=== PATIENT | male | born 1960 | race Caucasian/White ===

== ENCOUNTER 2018-07-27 09:40 | Inpatient (IN) | payer OTHER ==
[~2018-07-27] VITALS: Ht 182.9 cm; Wt 83.9 kg
[2018-07-27] VITALS (20 sets, daily range): BP systolic 98–128; BP diastolic 61–86
--- OUTSIDE RECORDS SUMMARY | 2018-07-27 09:46 | XMS REPORT | Continuity of Care Document ---
Author Author [facility] Address Unknown Phone Unavailable Allergies There is no data. Medications There is no data. Problems Date Dx Coded Attending Type Code Diagnosis Diagnosed By 08/09/2014 LSO DOSHI DO V74.1 TB SCREENING Procedures [place] [address] TB TEST INTRADERMAL 08/09/2014 Results There is no data. Encounters ACCT No. Visit Date/Time Discharge Status Pt. Type Provider Facility Loc./Unit Complaint [id number] 08/09/2014 16:00:00 08/09/2014 23:59:59 CLS Outpatient LOS DOSHI DO [id number] 02/19/2013 10:21:00 02/19/2013 23:59:59 CLS Outpatient
--- OUTSIDE RECORDS SUMMARY | 2018-07-27 09:46 | XMS REPORT ---
Author Author LOS DOSHI [facility] Address [address] [place] [address] Care Team Providers Care Hydrometeorology Teacher Name Role Phone LOS DOSHI Unavailable PROBLEMS Type Condition ICD9-CM Code [id number] Code Onset Dates Condition Status SNOMED Code Problem Screening examination for pulmonary tuberculosis V74.1 Active [id number] ALLERGIES No Information ENCOUNTERS Encounter Location Date Diagnosis [facility] [id number] [place] [phone] May, [facility] [id number] [address] Jul, [facility] [id number] [place] [phone] Jul, [facility] [id number] [address] Jul, IMMUNIZATIONS No Known Immunizations SOCIAL HISTORY Never Assessed REASON FOR VISIT Requesting return call. PLAN OF CARE VITAL SIGNS MEDICATIONS Unknown Medications RESULTS No Results PROCEDURES No Known procedures INSTRUCTIONS MEDICATIONS ADMINISTERED No Known Medications
--- OUTSIDE RECORDS SUMMARY | 2018-07-27 09:46 | XMS REPORT | Continuity of Care Document ---
Author Author [facility] Address Unknown Phone Unavailable Allergies There is no data. Medications There is no data. Problems Date Dx Coded Attending Type Code Diagnosis Diagnosed By 08/09/2014 LOS DOSHI DO V74.1 TB SCREENING Procedures Code [place] [address] TB TEST INTRADERMAL 08/09/2014 Results There is no data. Encounters ACCT No. Visit Date/Time Discharge Status Pt. Type Provider Facility Loc./Unit Complaint [id number] 08/09/2014 16:00:00 08/09/2014 23:59:59 CLS Outpatient LOS DOSHI DO [id number] 02/19/2013 10:21:00 02/19/2013 23:59:59 CLS Outpatient
[2018-07-27] MEDS ORDERED: NS IV 1000 ML 1,000 ML ONE ×2 (09:51→10:25)
--- NOTE | 2018-07-27 09:52 | Cardiac Procedure Note-CS/ASA ---
Pre-Procedure Note Pre-Op Procedure Note H&P Reviewed The H&P was reviewed, patient examined and no changes noted. Date H&P Reviewed: Jul 27, 2018 Time H&P Reviewed: 09:52 Conscious Sedation Pre-Proced Time 09:52 ASA Score 3 For ASA 3 and 4: Consider anesthesia and medical clearance. Also, for patients with a history of failed moderate sedation consider anesthesia. Airway Lungs Heart ASA score ASA 1: a normal healthy patient ASA 2: a patient with a mild systemic disease (mid diabetes, controlled hypertension, obesity x ASA 3: a patient with a severe systemic disease that limits activity (angina , COPD, prior Myocardial infarction) ASA 4: a patient with an incapacitating disease that is a constant threat to life (CHF, renal failure) ASA 5: a moribund patient not expected to survive 24 hrs. (ruptured aneurysm) ASA 6: a declared brain patient whose organs are being harvested. For emergent operations, add the letter E after the classification Mallampati Classification Grade 3 Sedation Plan Analgesia, Amnesia, Plan communicated to team members, Discussed options with patient/fam, Discussed risks with patient/fam The patient is an appropriate candidate to undergo the planned procedure, sedation, and anesthesia. The patient immediately re-assessed prior to indication. LUZMA DOMINGUEZ MD Jul 27, 2018 09:52
--- NOTE | 2018-07-27 09:52 | Cardiology History & Physical ---
HPI-Cardiology Cardiology Consultation Date of Consultation 07/27/18 Date of Admission Time Seen by Provider: 10:43 Indication: Chest pain HPI 58 years old gentleman with history of tobaccoism, was in his usual state of health until about 2 weeks ago when she suffered upper respiratory tract infection treated with steroid and antibiotic and felt better. Last night he started having chest pain described it as dull achiness in the retrosternal area radiating to left side of his chest. Went to the urgent care at [facility] this morning and was noted to have ST elevation in the inferior lead, was transferred by ambulance to our facility, upon my evaluation was feeling somewhat better. Still having mild chest discomfort. Denied any similar episode in the past. No shortness of breath, is an active smoker, no pedal edema or claudications PMH-Cardiology Other PMHx No significant past medical history Social History Patient Social History Marrital Status: Employed/Student: employed Smoking: Current every day smoker Recent Foreign Travel: No Contact w/other who traveled: No Family Hx Other Family history of heart disease ROS-Cardiology Review of Systems General: No Chills, No Night Sweats, No Fatigue, No Malaise, No Appetite HEENT: No Head Aches, No Visual Changes, No Eye Pain, No Ear Pain, No Dysphasia , No Sinus Congestion, No Post Nasal Drip, No Sore Throat Pulmonary: No Dyspnea, No Cough, No Pleuritic Chest Pain Cardiovascular: Chest Pain; No: Palpitations, Orthopnea, Paroxysmal Noc. Dyspnea, Edema, Lt Headedness Gastrointestinal: No: Nausea, Vomiting, Abdominal Pain, Diarrhea, Constipation , Melena, Hematochezia Genitourinary: No Dysuria, No Frequency, No Incontinence, No Hematuria, No Retention Musculoskeletal: No: neck pain, shoulder pain, arm pain, back pain, hand pain, leg pain, foot pain Neurological: No: Weakness, Numbness, Incoordination, Change in speech, Confusion, Seizures Home Medications & Allergies Allergies: Coded Allergies: No Known Drug Allergies (Unverified , 07/27/18) Home Medication List Reviewed: Yes Was not taking any medicine at home Exam-Cardiology Vital Signs Vital Signs Date Time Temp Pulse Resp B/P (MAP) Pulse Ox O2 Delivery O2 Flow Rate FiO2 07/27/18 09:47 66 18 118/72 (87) 97 07/27/18 09:42 Room Air Exam General Appearance: Alert, Oriented X3, Cooperative, No Acute Distress HEENT: Atraumatic, PERRLA Respiratory: Clear to Auscultation, Normal Air Movement Cardiovascular: Regular Rate, Normal S1, Normal S2, No Murmurs Abdominal: Normal Bowel Sounds, Soft, No Tenderness, No Hepatosplenomegaly, No Masses Extremities: No Clubbing, No Cyanosis, No Edema, Normal Pulses, No Tenderness/ Swelling Skin: No Rashes, No Breakdown, No Significant Lesion Neuro: Normal Gait, Normal Speech, Strength at 5/5 X4 Ext, Normal Tone, Sensation Intact Psych/Mental Status: Mental Status NL, Mood NL Results Labs Labs Laboratory Tests 07/27/18 09:45: White Blood Count 10.5, Red Blood Count 4.33L, Hemoglobin 14.0, Hematocrit 41, Mean Corpuscular Volume 94, Mean Corpuscular Hemoglobin 32, Mean Corpuscular Hemoglobin Concent 35, Red Cell Distribution Width 13.5, Platelet Count 168, Mean Platelet Volume 10.3, Neutrophils (%) (Auto) 79H, Lymphocytes (%) (Auto) 14 , Monocytes (%) (Auto) 7, Eosinophils (%) (Auto) 1, Basophils (%) (Auto) 0, Neutrophils # (Auto) 8.3H, Lymphocytes # (Auto) 1.5, Monocytes # (Auto) 0.7, Eosinophils # (Auto) 0.1, Basophils # (Auto) 0.0, Prothrombin Time 12.8, INR Comment 1.0, Activated Partial Thromboplast Time 26, Sodium Level 136, Potassium Level 4.1, Chloride Level 102, Carbon Dioxide Level 25, Anion Gap 9, Blood Urea Nitrogen 12, Creatinine 0.74, Estimat Glomerular Filtration Rate > 60 , BUN/Creatinine Ratio 16, Glucose Level 119H, Calcium Level 9.1, Corrected Calcium 9.2, Magnesium Level 2.0, Total Bilirubin 0.4, Aspartate Amino Transf ( AST/SGOT) 91H, Alanine Aminotransferase (ALT/SGPT) 34, Alkaline Phosphatase 69, Myoglobin 911.6H, Troponin I 4.40*H, Total Protein 6.6, Albumin 3.9 A/P-Cardiology Admission Diagnosis ST elevation [place] Coronary artery disease Hypertension Hyperlipidemia Admission Status: Inpatient Order (span 2 midnights) Reason for Inpatient Admission: Acute myocardial infarction Assessment/Plan ST elevation VA involving the inferior wall, patient started having chest pain over 12 hours from arrival to the hospital, had troponin elevation, proceeded with emergency cardiac catheterization which showed occlusion of the right coronary artery, attempt to recanalize the right coronary artery has failed, 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 Continue on medical therapy and monitor tolerance and response Hypertension, blood pressure is under good control at this time, I'll start him on low-dose beta blockers Questionable hyperlipidemia, starting on Lipitor 80 mg daily and monitor tolerance and response Tobaccoism, educated and instructed on smoking cessation LUZMA DOMINGUEZ MD Jul 27, 2018 09:52
[2018-07-27] MEDS ORDERED: fentaNYL INJECTION 100 MCG/2 ML AMP ONE (09:53)
[2018-07-27] MEDS ORDERED: HEParin 1000 UNIT/ML (10ML VIAL) FOR BOLUS ONE (09:53)
[2018-07-27] MEDS ORDERED: MIDAZOLAM 5 MG/5 ML (VERSED) VIAL ONE (09:53)
[2018-07-27 09:54] LABS: BASOPHILS % (AUTO) 0 % (0-10); EOSINOPHILS # (AUTO) 0.1 10^3/uL (0.0-0.3); EOSINOPHILS % (AUTO) 1 % (0-10); HEMATOCRIT 41 % (40-54); LYMPHOCYTES # (AUTO) 1.5 X 10^3 (1.0-4.0); LYMPHOCYTES % (AUTO) 14 % (12-44); MEAN CORPUSCULAR HEMOGLOBIN 32 PG (25-34); MEAN CORPUSCULAR HGB CONC 35 G/DL (32-36); MEAN CORPUSCULAR VOLUME 94 FL (80-99); MEAN PLATELET VOLUME 10.3 FL (7.4-10.4); MONOCYTES # (AUTO) 0.7 X 10^3 (0.0-1.0); MONOCYTES % (AUTO) 7 % (0-12); NEUTROPHILS # (AUTO) 8.3 X 10^3 (1.8-7.8); NEUTROPHILS % (AUTO) 79 % (42-75); PLATELET COUNT 168 10^3/uL (130-400); RED BLOOD COUNT 4.33 10^6/uL (4.35-5.85); RED CELL DISTRIBUTION WIDTH 13.5 % (10.0-14.5); WHITE BLOOD COUNT 10.5 10^3/uL (4.3-11.0)
[2018-07-27] MEDS ORDERED: EPTIFIBATIDE BOLUS 20 ML IV ONE (09:54)
--- NOTE | 2018-07-27 09:55 | ED Chest Pain ---
General Stated Complaint: STEMI Source: patient, EMS Exam Limitations: no limitations History of Present Illness Date Seen by Provider: Jul 27, 2018 Time Seen by Provider: 09:31 Initial Comments Patient presents to ER by EMS [place] [facility] [place] [facility] [place] because she's having substernal and midline chest pain started about 10:00 last night and has not gone away. He had some sweats overnight with it. He is a it might be GERD. He has no significant medical history and does not follow with a doctor. He is a smoker. The had a IV started is given 325 mg of aspirin about an EKG and stated he had an acute inferior CT at the urgent care. No nitroglycerin was given. He has a history of hernia surgery in his right inguinal and shoulder and right elbow surgery. EMS started about 200 cc of normal saline. He had no fever and good Blood pressure. Allergies and Home Medications Allergies Coded Allergies: No Known Drug Allergies (Unverified , 07/27/18) Patient Home Medication List Home Medication List Reviewed: Yes Review of Systems Review of Systems Constitutional: No chills, No fever EENTM: No Blurred Vision, No Double Vision Respiratory: Denies Cough, Denies Shortness of Air Cardiovascular: Chest Pain; Denies Edema Gastrointestinal: Denies Abdomen Distended, Denies Abdominal Pain Past Pphhqao-Sczwep-Ytjjpe Hx Patient Social History Recreational Drug Use: No Smoking Status: Current Everyday Smoker Recent Foreign Travel: No Contact w/Someone Who Travel: No Physical Exam Vital Signs Capillary Refill : Height, Weight, BMI Height: '" Weight: lbs. oz. kg; BMI Method: General Appearance: WD/WN, Mild Distress HEENT: PERRL/EOMI, Pharynx Normal, Moist Mucous Membranes Respiratory: Chest Non Tender, Lungs Clear, Normal Breath Sounds, No Accessory Muscle Use, No Respiratory Distress Cardiovascular: Regular Rate, Rhythm, No Edema Gastrointestinal: Non Tender, Soft Progress/Results/Core Measures Progress Progress Note : Time: 09:52 Progress Note [facility] was activated after the initial phone call from her [facility] urgent care. Dr. Mireles met the patient in the ER. He took a history we obtained labs and sent patient to [facility]. He is accompanied with an EKG pronounced from urgent care as well as the 12-lead from the truck which both indicated to 3 aVF and 1- 2 boxes of elevation. There are some reciprocal depression about 1 box in anterior leads 2 and 3. Initial ECG Impression Date: Jul 27, 2018 Initial ECG Impression Time: 09:02 Initial ECG Rate: 65 Initial ECG Rhythm: Normal Sinus Initial ECG Intervals: Normal Initial ECG Impression: Acute CT Initial ECG Comparisson: No Previous ECG Available Comment 1-2 mm elevation in leads 2, 3, aVF. Reciprocal depression 1 mm in leads V2 and V3. Departure Communication (Admissions) Time/Spoke to Admitting Phy: 09:34 Dr. Mireles met the patient in the ER and taken to [facility]. Agrees to admit the patient. Impression Primary Impression: Inferior myocardial infarction Disposition: ADMITTED INPATIENT Condition: Critical Admissions Decision to Admit Reason: Admit from ER (General) Decision to Admit/Date: Jul 27, 2018 Time/Decision to Admit Time: 09:55 Departure-Patient Inst. Referrals: LEONARD ARANGO MD (PCP) Primary Care Physician [place] Jul 27, 2018 09:55
[2018-07-27] MEDS ORDERED: niCARdipine 25 MG/10 ML (CARDENE) AMP IV ONE (10:03)
[2018-07-27] MEDS ORDERED: ATROPINE INJECTION 1 MG/10 ML SYR (ABBOTT) ONE (10:03)
[2018-07-27 10:06] LABS: PROTHROMBIN TIME PATIENT 12.8 SEC (12.2-14.7)
[2018-07-27 10:11] LABS: ALANINE AMINOTRANSFERASE 34 U/L (0-55); ALBUMIN 3.9 GM/DL (3.2-4.5); ALKALINE PHOSPHATASE 69 U/L (40-136); BILIRUBIN,TOTAL 0.4 MG/DL (0.1-1.0); BUN/CREATININE RATIO 16; CALCIUM 9.1 MG/DL (8.5-10.1); CARBON DIOXIDE 25 MMOL/L (21-32); CHLORIDE 102 MMOL/L (98-107); CREATININE SERUM 0.74 MG/DL (0.60-1.30); GFR ESTIMATED > 60; GLUCOSE 119 MG/DL (70-105); POTASSIUM 4.1 MMOL/L (3.6-5.0); SODIUM 136 MMOL/L (135-145); TOTAL PROTEIN 6.6 GM/DL (6.4-8.2)
[2018-07-27] MEDS ORDERED: NS (IVPB) 250 ML ONE (10:12)
[2018-07-27 10:18] LABS: MYOGLOBIN SERUM 911.6 NG/ML (10.0-92.0)
[2018-07-27] MEDS ORDERED: PATIENT MAY USE OWN MEDS, ALL PO SCH (11:15)
--- NOTE | 2018-07-27 11:21 | Cardiac Cath Report ---
Cardiac Cath Report Physician (s)/Virtual Office Assistant (s) Physician LUZMA DOMINGUEZ MD Pre-Procedure Diagnosis Pre-Procedure Diagnosis: Acute myocardial infarction Post-Procedure Note Procedure Start Date: Jul 27, 2018 Name of Procedure: Left heart catheterization Balloon angioplasty to the right coronary artery Findings/Procedure Note PROCEDURE NOTE: After explaining the procedure to the patient, all pros and cons were explained , all questions were answered. The patient signed the consent and then he was placed on the cardiac catheterization laboratory. Groin was prepped SL fashion local anesthesia was used. Sheath placed in the right femoral artery. Margie right and left catheter were used to access the coronary system. Pigtail was used to access the left ventricular cavity. Patient was noted to have total occlusion of the distal right coronary artery, tortuous artery with questionable spontaneous dissection distally, I proceeded with percutaneous intervention given 5000 units of heparin and double bolus Integrilin. I used if our guide and advanced BMW wire, I was unable to advance the wire tried a balloon support without success, used a whisper wire and was successful in crossing the lesion distally. It appear to be propagating the dissection after balloon angioplasty using 2.5x15 mm balloon, there was no improvement in the flow door to balloon time was 30 minutes, I pulled the wire back and redirected it and attempted again without success, used Choice PT wire and also kept favoring the dissection flap without establishing flow into the true lumen. I called Dr. Keller for support tried again with multiple wires without success in advancing the wire in the true lumen. At that point we decided that we will abort the procedure and continue with medical therapy. I advanced a pigtail catheter to the left ventricular cavity and left ventriculogram was done then placed the Margie left catheter again in the left corner system and injected the left corner system that showed that there are collaterals filling the distal right system. At the end of the procedure the sheath was removed. Closure device was used FINDINGS: Hemodynamics LV 121/17, end-diastolic pressure of 17 Aorta 135/79 mean of 103 ANATOMY: Left Main is bifurcating into LAD and circumflex artery with no disease Left Anterior Descending has mild to moderate ostial LAD stenosis, nonobstructive disease Left Circumflex has mild disease nonobstructive disease Right Coronory Artery is dominant artery tortuous artery and occluded distally with spontaneous dissection, I was able to advance a wire to the distal artery and balloon angioplasty done, door to balloon time was 30 minutes, was unable to establish good flow in the distal right coronary artery appeared to be propagating the dissection in that artery. LV Gram was done showing inferior wall hypokinesia estimated ejection fraction 50 percent CONCLUSION: 1. 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 2. Normal left ventricular size with inferior wall hypokinesia, estimated ejection fraction 50 percent DISCUSSION AND RECOMMENDATION: I will continue to maximize medical therapy Anesthesia Type: Conscious Sedation Estimated blood loss (mL): 50 ml Contrast Amount: 150 ml Total Radiation Dose: 3399 mGy Post-Procedure Diagnosis Post-operative diagnosis: Acute ST elevation [place] Coronary artery disease Hypertension Hyperlipidemia LUZMA DOMINGUEZ MD Jul 27, 2018 11:21
[2018-07-27] MEDS ORDERED: CLOPIDOGREL 300 MG (PLAVIX) TABLET PO ONE (11:23)
[2018-07-27] MEDS: NS IV 1000 ML 1,000 ML IV SCH ×2 (12:32→17:08)
--- NOTE | 2018-07-27 16:48 | Diagnostic Imaging Report ---
EXAM: Frontal chest obtained at 4:39 hours p.m. FINDINGS: Heart and mediastinal silhouette are normal in appearance, There is no pneumothorax, pleural fluid or focal infiltrate. IMPRESSION: No acute process in the chest and no change from 12/20/2007. Dictated by: Dictated on workstation # [id number]
[2018-07-27] MEDS: ATORVASTATIN 80 MG (LIPITOR) TABLET PO SCH (21:27)
[2018-07-27] MEDS: meTOprolol TARTRATE 25 MG (LOPRESSOR) TABLET PO SCH (21:28)
[2018-07-28] VITALS (10 sets, daily range): BP systolic 93–118; BP diastolic 64–74
[2018-07-28] MEDS: NS IV 1000 ML 1,000 ML IV SCH ×2 (03:11→18:35)
[2018-07-28 03:59] LABS: HEMOGLOBIN 12.8 G/DL (13.3-17.7); MEAN PLATELET VOLUME 10.8 FL (7.4-10.4); RED CELL DISTRIBUTION WIDTH 13.2 % (10.0-14.5); WHITE BLOOD COUNT 11.9 10^3/uL (4.3-11.0)
[2018-07-28 04:11] LABS: BUN/CREATININE RATIO 11; CALCIUM 8.8 MG/DL (8.5-10.1); CARBON DIOXIDE 22 MMOL/L (21-32); CHLORIDE 103 MMOL/L (98-107); CHOLESTEROL 266 MG/DL (< 200); CREATININE SERUM 0.63 MG/DL (0.60-1.30); GFR ESTIMATED > 60; GLUCOSE 126 MG/DL (70-105); HDL CHOLESTEROL 41 MG/DL (40-60); POTASSIUM 4.1 MMOL/L (3.6-5.0); SODIUM 134 MMOL/L (135-145); TRIGLYCERIDES 178 MG/DL (<150); VLDL CHOLESTEROL 36 MG/DL (5-40)
[2018-07-28 05:18] LABS: MAGNESIUM 1.7 MG/DL (1.8-2.4); PHOSPHORUS 2.6 MG/DL (2.3-4.7)
[2018-07-28] MEDS: MAGNESIUM 1 GM/100 ML IVPB 100 ML IV SCH ×2 (06:54→08:27)
[2018-07-28] MEDS: ASPIRIN E.C. 81 MG (ECOTRIN) TAB PO SCH (08:27)
[2018-07-28] MEDS: meTOprolol TARTRATE 25 MG (LOPRESSOR) TABLET PO SCH ×2 (08:28→20:35)
[2018-07-28] MEDS: CLOPIDOGREL 75 MG (PLAVIX) TABLET PO SCH (08:28)
--- NOTE | 2018-07-28 10:31 | Diagnostic Imaging Report ---
INDICATION: Chest pain. COMPARISON: 07/27/2018. FINDINGS: Visualized lungs are clear. No pleural effusion or pneumothorax. Posterior lower lobes are poorly evaluated by portable radiography. Heart is normal in size. Normal pulmonary vasculature. IMPRESSION: Stable-negative portable chest. Dictated by: Dictated on workstation # [id number]
[2018-07-28] MEDS ORDERED: ONDANSETRON 4 MG/2 ML (SDV) Z0FRAN IVP NR (11:00)
[2018-07-28] MEDS ORDERED: ANTACID SUSP 30 ML UDC (MYLANTA) PO NR (11:00)
--- NOTE | 2018-07-28 11:49 | Cardiology Progress Note ---
Subjective Date Seen by Provider: Jul 28, 2018 Time Seen by Provider: 08:20 Subjective/Events-last exam Patient was seen at bedside, sitting upright, feeling good, denied any chest pain, no palpitation. Review of Systems General: No Chills, No Night Sweats, No Fatigue, No Malaise, No Appetite, No Other HEENT: No Head Aches, No Visual Changes, No Eye Pain, No Ear Pain, No Dysphasia , No Sinus Congestion, No Post Nasal Drip, No Sore Throat, No Other Pulmonary: No Dyspnea, No Cough, No Pleuritic Chest Pain, No Other Cardiovascular: No: Chest Pain, Palpitations, Orthopnea, Paroxysmal Noc. Dyspnea, Edema, Lt Headedness, Other Objective-Cardiology Exam Last Set of Vital Signs Vital Signs 07/28/18 07/28/18 07/28/18 07/28/18 06:00 07:00 08:34 11:21 Temp 98.6 Pulse 73 Resp 14 B/P (MAP) 114/74 (87) Pulse Ox 98 O2 Delivery Room Air Capillary Refill : Less Than 3 Seconds I&O Intake and Output 07/28/18 00:00 Intake Total 1740 ml Output Total 1075 ml Balance 665 ml Intake Oral 540 ml IV Total 1200 ml Output Urine Total 1075 ml # Voids 1 Daily Weight Change No General: Alert, Oriented X3, Cooperative, No Acute Distress HEENT: Atraumatic, PERRLA Neck: Supple, No JVD Lungs: Clear to Auscultation, Normal Air Movement Heart: Regular Rate, Normal S1, Normal S2, No Murmurs Abdomen: Normal Bowel Sounds, Soft, No Tenderness, No Hepatosplenomegaly, No Masses Extremities: No Clubbing, No Cyanosis, No Edema, Normal Pulses, No Tenderness/ Swelling Skin: No Rashes, No Breakdown, No Significant Lesion Neuro: Normal Gait, Normal Speech, Strength at 5/5 X4 Ext, Normal Tone, Sensation Intact Psych/Mental Status: Mental Status NL, Mood NL Results Lab Laboratory Tests 07/28/18 03:36 Laboratory Tests Test 07/28/18 03:36 Range/Units White Blood Count 11.9 H 4.3-11.0 10^3/uL Red Blood Count 4.00 L 4.35-5.85 10^6/uL Hemoglobin 12.8 L 13.3-17.7 G/DL Hematocrit 38 L 40-54 % Mean Corpuscular Volume 95 80-99 FL Mean Corpuscular Hemoglobin 32 25-34 PG Mean Corpuscular Hemoglobin Concent 34 32-36 G/DL Red Cell Distribution Width 13.2 10.0-14.5 % Platelet Count 129 L 130-400 10^3/uL Mean Platelet Volume 10.8 H 7.4-10.4 FL Sodium Level 134 L 135-145 MMOL/L Potassium Level 4.1 3.6-5.0 MMOL/L Chloride Level 103 98-107 MMOL/L Carbon Dioxide Level 22 21-32 MMOL/L Anion Gap 9 5-14 MMOL/L Blood Urea Nitrogen 7 7-18 MG/DL Creatinine 0.63 0.60-1.30 MG/DL Estimat Glomerular Filtration Rate > 60 BUN/Creatinine Ratio 11 Glucose Level 126 H 70-105 MG/DL Calcium Level 8.8 8.5-10.1 MG/DL Phosphorus Level 2.6 2.3-4.7 MG/DL Magnesium Level 1.7 L 1.8-2.4 MG/DL Troponin I 33.29 *H <0.30 NG/ML Triglycerides Level 178 H <150 MG/DL Cholesterol Level 266 H < 200 MG/DL LDL Cholesterol Direct 203 H 1-129 MG/DL VLDL Cholesterol 36 5-40 MG/DL HDL Cholesterol 41 40-60 MG/DL Thyroid Stimulating Hormone (TSH) 0.29 L 0.35-4.94 UIU/ML A/P-Cardiology Admission Diagnosis ST elevation [place] Coronary artery disease Hypertension Hyperlipidemia Assessment/Plan ST elevation [place] involving the inferior wall, 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 Door to balloon time was 30 minutes. Troponin is up to 33, continue to monitor. Continue on aspirin and Plavix. Hypertension, tolerating Toprol well. Continue to monitor Hyperlipidemia, started on Lipitor 80 mg, add Fish oil and monitor Nausea, loss of appetite. Given Zofran. Continue to monitor Tobaccoism, educated and instructed on smoking cessation Clinical Quality Measures DVT/VTE Risk/Contraindication: Risk Factor Score Per Nursin RFS Level Per Nursing on Admit: 4+=Very High LUZMA DOMINGUEZ MD Jul 28, 2018 11:49
[2018-07-28] MEDS: OMEGA 3 (FISH OIL) 1000 MG CAP PO SCH (16:52)
[2018-07-28] MEDS ORDERED: NITROGLYCERIN 0.4 MG SL TABS BTL 25'S SL NR (18:45)
[2018-07-28] MEDS ORDERED: fentaNYL INJECTION 100 MCG/2 ML AMP ONE (20:08)
[2018-07-28] MEDS: ATORVASTATIN 80 MG (LIPITOR) TABLET PO SCH (20:35)
[2018-07-28] MEDS ORDERED: oxyCODONE/APAP 5/325MG (PERCOCET 5) TABLET ONE (21:53)
[2018-07-28] MEDS ORDERED: NITROGLYCERIN 2% OINT 1 GM UNIT DOSE PACKET ONE (22:26)
[2018-07-28] MEDS ORDERED: FUROSEMIDE 40 MG/4 ML INJ (LASIX) ONE (22:26)
[2018-07-28] MEDS ORDERED: morphine INJ 4 MG/ML 1 ML (VIAL/SYRINGE) ONE (22:26)
[2018-07-29] VITALS (8 sets, daily range): BP systolic 91–116; BP diastolic 58–79
[2018-07-29] MEDS ORDERED: oxyCODONE/APAP 5/325MG (PERCOCET 5) TABLET PO ONE (00:45)
[2018-07-29] MEDS ORDERED: FUROSEMIDE 40 MG/4 ML INJ (LASIX) IVP ONE (00:45)
[2018-07-29] MEDS ORDERED: morphine INJ 4 MG/ML 1 ML (VIAL/SYRINGE) IVP ONE (00:45)
[2018-07-29] MEDS ORDERED: NITROGLYCERIN 2% OINT 1 GM UNIT DOSE PACKET TOP ONE (00:45)
[2018-07-29] MEDS ORDERED: fentaNYL INJECTION 100 MCG/2 ML AMP IVP ONE (00:45)
[2018-07-29] MEDS: NS IV 1000 ML 1,000 ML IV SCH ×2 (02:57→16:35)
[2018-07-29 04:11] LABS: HEMOGLOBIN 12.8 G/DL (13.3-17.7); MEAN PLATELET VOLUME 10.9 FL (7.4-10.4); RED BLOOD COUNT 3.86 10^6/uL (4.35-5.85); RED CELL DISTRIBUTION WIDTH 13.5 % (10.0-14.5); WHITE BLOOD COUNT 13.9 10^3/uL (4.3-11.0)
[2018-07-29 04:50] LABS: ALANINE AMINOTRANSFERASE 53 U/L (0-55); ALBUMIN 3.8 GM/DL (3.2-4.5); ALKALINE PHOSPHATASE 72 U/L (40-136); BILIRUBIN,TOTAL 0.7 MG/DL (0.1-1.0); BUN/CREATININE RATIO 11; CALCIUM 9.5 MG/DL (8.5-10.1); CARBON DIOXIDE 22 MMOL/L (21-32); CHLORIDE 101 MMOL/L (98-107); GFR ESTIMATED > 60; GLUCOSE 124 MG/DL (70-105); SODIUM 135 MMOL/L (135-145); TOTAL PROTEIN 6.9 GM/DL (6.4-8.2)
--- NOTE | 2018-07-29 07:09 | Cardiology Progress Note ---
Subjective Date Seen by Provider: Jul 29, 2018 Time Seen by Provider: 07:07 Subjective/Events-last exam Patient had a nausea and vomiting yesterday and then started having epigastric and lower chest pain, was improving during the day but started getting worse at night, reported as lockstitch hemmer pain, pain with coughing and movement. Became more intense at night. Responded to nitroglycerin and morphine. Initially the sublingual nitroglycerin did not help much but the Nitropatch brought some relief of his chest pain Review of Systems General: No Chills, No Night Sweats, No Fatigue, No Malaise, No Appetite, No Other HEENT: No Head Aches, No Visual Changes, No Eye Pain, No Ear Pain, No Dysphasia , No Sinus Congestion, No Post Nasal Drip, No Sore Throat, No Other Pulmonary: No Dyspnea; Cough; No Pleuritic Chest Pain, No Other Cardiovascular: Chest Pain; No: Palpitations, Orthopnea, Paroxysmal Noc. Dyspnea, Edema, Lt Headedness, Other Objective-Cardiology Exam Last Set of Vital Signs Vital Signs 07/28/18 07/28/18 07/29/18 19:49 21:00 04:00 Pulse 96 Resp 18 B/P (MAP) 112/70 (84) Pulse Ox 94 O2 Delivery Room Air O2 Flow Rate 2.00 Capillary Refill : Less Than 3 Seconds I&O Intake and Output 07/29/18 00:00 Intake Total 2660 ml Output Total 1700 ml Balance 960 ml Intake Oral 960 ml IV Total 1700 ml Output Urine Total 1700 ml # Voids 5 # Emeses 1 General: Alert, Oriented X3, Cooperative, No Acute Distress HEENT: Atraumatic, PERRLA Neck: Supple, No JVD Lungs: Clear to Auscultation, Normal Air Movement Heart: Regular Rate, Normal S1, Normal S2, No Murmurs Abdomen: Normal Bowel Sounds, Soft, No Tenderness, No Hepatosplenomegaly, No Masses Extremities: No Clubbing, No Cyanosis, No Edema, Normal Pulses, No Tenderness/ Swelling Skin: No Rashes, No Breakdown, No Significant Lesion Neuro: Normal Gait, Normal Speech, Strength at 5/5 X4 Ext, Normal Tone, Sensation Intact Psych/Mental Status: Mental Status NL, Mood NL Results Lab Laboratory Tests 07/29/18 04:05 A/P-Cardiology Admission Diagnosis ST elevation [place] Coronary artery disease Hypertension Hyperlipidemia Assessment/Plan ST elevation [place] involving the inferior wall, 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 Door to balloon time was 30 minutes. Troponin is trending down at this time. Continue on aspirin and Plavix and monitor. Chest pain, better today. Continue to monitor, I will start him on Imdur instead of Nitropatch and evaluate his tolerance and response Mild shortness of breath and cough, I will give additional dose of Lasix and monitor his response Hypertension, tolerating Toprol well. Continue to monitor Hyperlipidemia, started on Lipitor 80 mg, add Fish oil and monitor Nausea, loss of appetite, better at this time. Continue to monitor Tobaccoism, educated and instructed on smoking cessation Clinical Quality Measures DVT/VTE Risk/Contraindication: Risk Factor Score Per Nursin RFS Level Per Nursing on Admit: 4+=Very High LUZMA DOMINGUEZ MD Jul 29, 2018 07:09
[2018-07-29] MEDS ORDERED: FUROSEMIDE 40 MG/4 ML INJ (LASIX) IVP NR (07:30)
[2018-07-29] MEDS: ISOSORBIDE MONONITRATE 30 MG (IMDUR) TAB PO SCH (09:14)
[2018-07-29] MEDS: meTOprolol TARTRATE 25 MG (LOPRESSOR) TABLET PO SCH ×2 (09:14→20:46)
[2018-07-29] MEDS: CLOPIDOGREL 75 MG (PLAVIX) TABLET PO SCH (09:14)
[2018-07-29] MEDS: ASPIRIN E.C. 81 MG (ECOTRIN) TAB PO SCH (09:14)
[2018-07-29] MEDS: OMEGA 3 (FISH OIL) 1000 MG CAP PO SCH ×2 (09:14→18:01)
[2018-07-29] MEDS ORDERED: PANTOPRAZOLE 40 MG (PROTONIX) TAB PO NR (09:30)
[2018-07-29] MEDS: ATORVASTATIN 80 MG (LIPITOR) TABLET PO SCH (20:46)
[2018-07-30] VITALS: BP 99/63
[2018-07-30 04:00] VITALS: BP 106/64
[2018-07-30 05:04] LABS: HEMOGLOBIN 11.3 G/DL (13.3-17.7); MEAN PLATELET VOLUME 11.2 FL (7.4-10.4); RED BLOOD COUNT 3.5 10^6/uL (4.35-5.85); RED CELL DISTRIBUTION WIDTH 13.1 % (10.0-14.5); WHITE BLOOD COUNT 9.5 10^3/uL (4.3-11.0)
[2018-07-30 05:21] LABS: BUN/CREATININE RATIO 16; CALCIUM 9.4 MG/DL (8.5-10.1); CARBON DIOXIDE 27 MMOL/L (21-32); CHLORIDE 99 MMOL/L (98-107); CREATININE SERUM 0.74 MG/DL (0.60-1.30); GFR ESTIMATED > 60; GLUCOSE 109 MG/DL (70-105); SODIUM 135 MMOL/L (135-145)
[2018-07-30] MEDS ORDERED: PANTOPRAZOLE 40 MG (PROTONIX) TAB PO SCH (07:00)
[2018-07-30] MEDS: OMEGA 3 (FISH OIL) 1000 MG CAP PO SCH (07:04)
[2018-07-30] MEDS ORDERED: ATOR80TA76 PO (07:28)
[2018-07-30] MEDS ORDERED: ASPI-983 PO (07:28)
[2018-07-30] MEDS ORDERED: METO-351 PO (07:28)
[2018-07-30] MEDS ORDERED: CLOP75TA28 PO (07:28)
[2018-07-30] MEDS ORDERED: PANT40TA3 PO (07:28)
[2018-07-30] MEDS ORDERED: OMG1KC PO (07:28)
[2018-07-30] MEDS ORDERED: ISOS30TA3 PO (07:28)
[2018-07-30] MEDS ORDERED: FURO-125 PO (07:29)
--- NOTE | 2018-07-30 07:31 | Discharge Inst-Post CATH ---
Discharge Inst-CATH Post Cardiac Cath D/C Inst Follow Up/Plan May return to work on August 10, [address] Mireles's office in 2 weeks CARDIAC CATH DISCHARGE INSTRUCTIONS *Hold Metformin for 48 hours post heart cath. ACTIVITY * Go Home directly and rest. * Limit activity of the leg (or wrist if it was used) for 7 days including aerobics, swimming, jogging, bicycling, etc. * Restrict stair-climbing for 7 days if possible, if not, climb up with your non -cath leg, then bring together on the same step. * Avoid lifting, pushing, pulling or excessive movement of the affected extremity for 7 days. * Customary sexual activity may be resumed after 2 days-use caution not to use a position that strains or causes pain to the affected extremity. * No driving for 24 hours. * NO SMOKING. * Avoid straining for bowel movements for 7 days. * Gentle walking on level ground is allowed. * Returning to work will depend on the type of procedure and the results. Your doctor will discuss this with you. CALL YOUR DOCTOR FOR ANY OF THE FOLLOWING: *If bleeding from the puncture site occurs- Apply gentle pressure to site with clean cloth and call your doctor or EMS. * If a knot or lump forms under the skin, increases in size, or causes pain. * If bruising appears to be worsening or moving further down your leg instead of disappearing. * Temperature above 101 F. CARE OF YOUR GROIN INCISION; * Bruising or purple discoloration of the skin near the puncture site is common. * You may shower only, no bathtub bathing for 5 days. Be careful to avoid slipping as your leg may feel stiff. * If a closure device was used on your femoral artery, please see the attached guide regarding care of the device and your leg. * Leave the dressing on, until removed by office staff. CARE OF YOUR WRIST INCISION; * Bruising or purple discoloration of the skin near the puncture site is common. * You may shower. * DO NOT submerge wrist. * Leave dressing on, until removed by office staff.. LUZMA MIRELES MD Jul 30, 2018 07:31
--- NOTE | 2018-07-30 07:38 | Cardiology Discharge Summary ---
Diagnosis/Chief Complaint Date of Admission July 27, 2018 Date of Discharge July 30, [address] elevation ND Coronary artery disease Hypertension Hyperlipidemia Discharge Diagnosis ST elevation myocardial infarction Coronary artery disease Hypertension Hyperlipidemia Chief Complaint/HPI Chief Complaint/HPI 58 years old gentleman with history of tobaccoism, was in his usual state of health until about 2 weeks ago when she suffered upper respiratory tract infection treated with steroid and antibiotic and felt better. Last night he started having chest pain described it as dull achiness in the retrosternal area radiating to left side of his chest. Went to the urgent care at [facility] this morning and was noted to have ST elevation in the inferior lead, was transferred by ambulance to our facility, upon my evaluation was feeling somewhat better. Still having mild chest discomfort. Denied any similar episode in the past. 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 Patient was monitored in the hospital and today he is feeling better. 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 Door to balloon time was 30 minutes. Patient is feeling better. Denied any chest pain at this time, ambulating well. I will discharge home, would continue on aspirin and Plavix, continue on isosorbide and monitor as an outpatient Chest pain, better today, planning for discharge and follow-up as an outpatient Mild shortness of breath and cough, improved after receiving a dose of Lasix, will discharge her on Lasix to be used as needed for shortness of breath and cough Hypertension, tolerating Toprol well. Continue to monitor Hyperlipidemia, started on Lipitor 80 mg, add Fish oil and monitor Nausea, loss of appetite, better at this time. Continue to monitor Tobaccoism, educated and instructed on smoking cessation Patient was ambulating yesterday, continue to exercise yesterday while he was on cardiac stepdown and felt better, did not have any chest pain with exercise. Labs Laboratory Tests 07/27/18 09:45: Red Blood Count 4.33L, Neutrophils (%) (Auto) 79H, Neutrophils # (Auto) 8.3H, Glucose Level 119H, Aspartate Amino Transf (AST/SGOT) 91H, Myoglobin 911.6H, Troponin I 4.40*H 07/28/18 03:36: Red Blood Count 4.00L, Glucose Level 126H, Troponin I 33.29*H, White Blood Count 11.9H, Hemoglobin 12.8L, Hematocrit 38L, Platelet Count 129L, Mean Platelet Volume 10.8H, Sodium Level 134L, Magnesium Level 1.7L, Triglycerides Level 178H, Cholesterol Level 266H, LDL Cholesterol Direct 203H, Thyroid Stimulating Hormone (TSH) 0.29L 07/29/18 04:05: Red Blood Count 3.86L, Glucose Level 124H, Aspartate Amino Transf (AST/SGOT) 172H, Troponin I 25.71*H, White Blood Count 13.9H, Hemoglobin 12.8L, Hematocrit 37L, Platelet Count 123L, Mean Platelet Volume 10.9H 07/30/18 05:00: Red Blood Count 3.50L, Glucose Level 109H, Troponin I 24.58*H, Hemoglobin 11.3L , Hematocrit 33L, Platelet Count 120L, Mean Platelet Volume 11.2H Procedures None. Discharge Physical Examination Allergies: Coded Allergies: No Known Drug Allergies (Unverified , 07/27/18) Vitals & I&Os Vital Signs Date Time Temp Pulse Resp B/P (MAP) Pulse Ox O2 Delivery O2 Flow Rate FiO2 07/30/18 04:00 99.3 95 16 106/64 (78) 94 Room Air 07/28/18 21:00 2.00 General Appearance: Alert, Oriented X3, Cooperative, No Acute Distress HEENT: Atraumatic, PERRLA Respiratory: Clear to Auscultation, Normal Air Movement Cardiovascular: Regular Rate, Normal S1, Normal S2, No Murmurs Abdominal: Normal Bowel Sounds, Soft, No Tenderness, No Hepatosplenomegaly, No Masses Extremities: No Clubbing, No Cyanosis, No Edema, Normal Pulses, No Tenderness/ Swelling Skin: No Rashes, No Breakdown, No Significant Lesion Neuro: Normal Gait, Normal Speech, Strength at 5/5 X4 Ext, Normal Tone, Sensation Intact, Cranial Nerves 3-12 NL, Reflexes 2+ Psych/Mental Status: Mental Status NL, Mood NL Discharge Home Medications Reviewed and agree with Discharge Medication list on patient's Discharge Instruction sheet Instructions to Patient/Family Please see electronic discharge instructions given to patient. Clinical Quality Measures Admission Status Admission Status: Inpatient Order (span 2 midnights) Reason for Inpatient Admission: Acute myocardial infarction AMI/AHF: Ejection Fraction: Normal LVSF DVT/VTE Risk/Contraindication: Risk Factor Score Per Nursin RFS Level Per Nursing on Admit: 4+=Very High LUZMA DOMINGUEZ MD Jul 30, 2018 07:38
[2018-07-30 08:00] VITALS: BP 110/65
[2018-07-30] MEDS: ASPIRIN E.C. 81 MG (ECOTRIN) TAB PO SCH (08:19)
[2018-07-30] MEDS: CLOPIDOGREL 75 MG (PLAVIX) TABLET PO SCH (08:19)
[2018-07-30] MEDS: meTOprolol TARTRATE 25 MG (LOPRESSOR) TABLET PO SCH (08:20)
[2018-07-30] MEDS: ISOSORBIDE MONONITRATE 30 MG (IMDUR) TAB PO SCH (08:20)
--- OUTSIDE RECORDS SUMMARY | 2018-07-30 14:12 | XMS REPORT | Continuity of Care Document ---
Author Author [facility] [place] [facility] Address Unknown Phone Unavailable Allergies Active Description Code Type Severity Reaction Onset Reported/Identified Relationship to Patient Clinical Status Yes No Known Drug Allergies [id number] Drug Allergy Unknown N/A 07/27/2018 Medications There is no data. Problems Date Dx Coded Attending Type Code Diagnosis Diagnosed By 08/09/2014 LOS DOSHI DO V74.1 TB SCREENING 07/27/2018 CALVIN VILLAR, YESSY Ot 719.41 [employer] Procedures Code [place] [address] TB TEST INTRADERMAL 08/09/2014 Results Test Result Range Complete blood count (CBC) with automated white blood cell (WBC) differential - 07/27/18 09:45 Blood leukocytes automated count (number/volume) 10.5 10*3/uL 4.3-11.0 Blood erythrocytes automated count (number/volume) 4.33 10*6/uL 4.35-5.85 Venous blood hemoglobin measurement (mass/volume) 14.0 g/dL 13.3-17.7 Blood hematocrit (volume fraction) 41 % 40-54 Automated erythrocyte mean corpuscular volume 94 [foz_us] 80-99 Automated erythrocyte mean corpuscular hemoglobin (mass per erythrocyte) 32 pg 25-34 Automated erythrocyte mean corpuscular hemoglobin concentration measurement ( mass/volume) 35 g/dL 32-36 Automated erythrocyte distribution width ratio 13.5 % 10.0-14.5 Automated blood platelet count (count/volume) 168 10*3/uL 130-400 Automated blood platelet mean volume measurement 10.3 [foz_us] 7.4-10.4 Automated blood neutrophils/100 leukocytes 79 % 42-75 Automated blood lymphocytes/100 leukocytes 14 % 12-44 Blood monocytes/100 leukocytes 7 % 0-12 Automated blood eosinophils/100 leukocytes 1 % 0-10 Automated blood basophils/100 leukocytes 0 % 0-10 Blood neutrophils automated count (number/volume) 8.3 10*3 1.8-7.8 Blood lymphocytes automated count (number/volume) 1.5 10*3 1.0-4.0 Blood monocytes automated count (number/volume) 0.7 10*3 0.0-1.0 Automated eosinophil count 0.1 10*3/uL 0.0-0.3 Automated blood basophil count (count/volume) 0.0 10*3/uL 0.0-0.1 PT panel in platelet poor plasma by coagulation assay - 07/27/18 09:45 Prothrombin time (PT) in platelet poor plasma by coagulation assay 12.8 s 12.2-14.7 INR in platelet poor plasma or blood by coagulation assay 1.0 0.8-1.4 Activated partial thromboplastin time (aPTT) in platelet poor plasma bycoagulation assay - 07/27/18 09:45 Activated partial thromboplastin time (aPTT) in platelet poor plasma bycoagulation assay 26 s 24-35 Comprehensive metabolic panel - 07/27/18 09:45 Serum or plasma sodium measurement (moles/volume) 136 mmol/L 135-145 Serum or plasma potassium measurement (moles/volume) 4.1 mmol/L 3.6-5.0 Serum or plasma chloride measurement (moles/volume) 102 mmol/L 98-107 Carbon dioxide 25 mmol/L 21-32 Serum or plasma anion gap determination (moles/volume) 9 mmol/L 5-14 Serum or plasma urea nitrogen measurement (mass/volume) 12 mg/dL 7-18 Serum or plasma creatinine measurement (mass/volume) 0.74 mg/dL 0.60-1.30 Serum or plasma urea nitrogen/creatinine mass ratio 16 NRG Serum or plasma creatinine measurement with calculation of estimated glomerular filtration rate > NRG Serum or plasma glucose measurement (mass/volume) 119 mg/dL 70-105 Serum or plasma calcium measurement (mass/volume) 9.1 mg/dL 8.5-10.1 Serum or plasma total bilirubin measurement (mass/volume) 0.4 mg/dL 0.1-1.0 Serum or plasma alkaline phosphatase measurement (enzymatic activity/volume) 69 U/L 40-136 Serum or plasma aspartate aminotransferase measurement (enzymatic activity/ volume) 91 U/L 5-34 Serum or plasma alanine aminotransferase measurement (enzymatic activity/volume ) 34 U/L 0-55 Serum or plasma protein measurement (mass/volume) 6.6 g/dL 6.4-8.2 Serum or plasma albumin measurement (mass/volume) 3.9 g/dL 3.2-4.5 CALCIUM CORRECTED 9.2 mg/dL 8.5-10.1 Magnesium - 07/27/18 09:45 Magnesium 2.0 mg/dL 1.8-2.4 Serum or plasma troponin i.cardiac measurement (mass/volume) - 07/27/18 09:45 Serum or plasma troponin i.cardiac measurement (mass/volume) 4.40 ng /mL <0.30 Myoglobin, serum - 07/27/18 09:45 Myoglobin, serum 911.6 ng/mL 10.0-92.0 Automated blood complete blood count (hemogram) panel - 07/28/18 03:36 Blood leukocytes automated count (number/volume) 11.9 10*3/uL 4.3-11.0 Blood erythrocytes automated count (number/volume) 4.00 10*6/uL 4.35-5.85 Venous blood hemoglobin measurement (mass/volume) 12.8 g/dL 13.3-17.7 Blood hematocrit (volume fraction) 38 % 40-54 Automated erythrocyte mean corpuscular volume 95 [foz_us] 80-99 Automated erythrocyte mean corpuscular hemoglobin (mass per erythrocyte) 32 pg 25-34 Automated erythrocyte mean corpuscular hemoglobin concentration measurement ( mass/volume) 34 g/dL 32-36 Automated erythrocyte distribution width ratio 13.2 % 10.0-14.5 Automated blood platelet count (count/volume) 129 10*3/uL 130-400 Automated blood platelet mean volume measurement 10.8 [foz_us] 7.4-10.4 Whole blood basic metabolic panel - 07/28/18 03:36 Serum or plasma sodium measurement (moles/volume) 134 mmol/L 135-145 Serum or plasma potassium measurement (moles/volume) 4.1 mmol/L 3.6-5.0 Serum or plasma chloride measurement (moles/volume) 103 mmol/L 98-107 Carbon dioxide 22 mmol/L 21-32 Serum or plasma anion gap determination (moles/volume) 9 mmol/L 5-14 Serum or plasma urea nitrogen measurement (mass/volume) 7 mg/dL 7-18 Serum or plasma creatinine measurement (mass/volume) 0.63 mg/dL 0.60-1.30 Serum or plasma urea nitrogen/creatinine mass ratio 11 NRG Serum or plasma creatinine measurement with calculation of estimated glomerular filtration rate > NRG Serum or plasma glucose measurement (mass/volume) 126 mg/dL 70-105 Serum or plasma calcium measurement (mass/volume) 8.8 mg/dL 8.5-10.1 Serum or plasma troponin i.cardiac measurement (mass/volume) - 07/28/18 03:36 Serum or plasma troponin i.cardiac measurement (mass/volume) 33.29 ng/mL <0.30 Lipid 1996 panel - 07/28/18 03:36 Serum or plasma triglyceride measurement (mass/volume) 178 mg/dL <150 Serum or plasma cholesterol measurement (mass/volume) 266 mg/dL < 200 Serum or plasma cholesterol in HDL measurement (mass/volume) 41 mg/ dL 40-60 Cholesterol in LDL [mass/volume] in serum or plasma by direct assay 203 mg/dL 1-129 Serum or plasma cholesterol in VLDL measurement (mass/volume) 36 mg/ dL 5-40 THYROID STIMULATING HORMONE - 07/28/18 03:36 THYROID STIMULATING HORMONE 0.29 u[iU]/mL 0.35-4.94 Serum or plasma phosphate measurement (mass/volume) - 07/28/18 03:36 Serum or plasma phosphate measurement (mass/volume) 2.6 mg/dL 2.3-4.7 Magnesium - 07/28/18 03:36 Magnesium 1.7 mg/dL 1.8-2.4 Automated blood complete blood count (hemogram) panel - 07/29/18 04:05 Blood leukocytes automated count (number/volume) 13.9 10*3/uL 4.3-11.0 Blood erythrocytes automated count (number/volume) 3.86 10*6/uL 4.35-5.85 Venous blood hemoglobin measurement (mass/volume) 12.8 g/dL 13.3-17.7 Blood hematocrit (volume fraction) 37 % 40-54 Automated erythrocyte mean corpuscular volume 97 [foz_us] 80-99 Automated erythrocyte mean corpuscular hemoglobin (mass per erythrocyte) 33 pg 25-34 Automated erythrocyte mean corpuscular hemoglobin concentration measurement ( mass/volume) 34 g/dL 32-36 Automated erythrocyte distribution width ratio 13.5 % 10.0-14.5 Automated blood platelet count (count/volume) 123 10*3/uL 130-400 Automated blood platelet mean volume measurement 10.9 [foz_us] 7.4-10.4 Comprehensive metabolic panel - 07/29/18 04:05 Serum or plasma sodium measurement (moles/volume) 135 mmol/L 135-145 Serum or plasma potassium measurement (moles/volume) 4.0 mmol/L 3.6-5.0 Serum or plasma chloride measurement (moles/volume) 101 mmol/L 98-107 Carbon dioxide 22 mmol/L 21-32 Serum or plasma anion gap determination (moles/volume) 12 mmol/L 5-14 Serum or plasma urea nitrogen measurement (mass/volume) 8 mg/dL 7-18 Serum or plasma creatinine measurement (mass/volume) 0.70 mg/dL 0.60-1.30 Serum or plasma urea nitrogen/creatinine mass ratio 11 NRG Serum or plasma creatinine measurement with calculation of estimated glomerular filtration rate > NRG Serum or plasma glucose measurement (mass/volume) 124 mg/dL 70-105 Serum or plasma calcium measurement (mass/volume) 9.5 mg/dL 8.5-10.1 Serum or plasma total bilirubin measurement (mass/volume) 0.7 mg/dL 0.1-1.0 Serum or plasma alkaline phosphatase measurement (enzymatic activity/volume) 72 U/L 40-136 Serum or plasma aspartate aminotransferase measurement (enzymatic activity/ volume) 172 U/L 5-34 Serum or plasma alanine aminotransferase measurement (enzymatic activity/volume ) 53 U/L 0-55 Serum or plasma protein measurement (mass/volume) 6.9 g/dL 6.4-8.2 Serum or plasma albumin measurement (mass/volume) 3.8 g/dL 3.2-4.5 CALCIUM CORRECTED 9.7 mg/dL 8.5-10.1 Serum or plasma troponin i.cardiac measurement (mass/volume) - 07/29/18 04:05 Serum or plasma troponin i.cardiac measurement (mass/volume) 25.71 ng/mL <0.30 Encounters ACCT No. Visit Date/Time Discharge Status Pt. Type Provider Facility Loc./Unit Complaint [id number] 08/09/2014 16:00:00 08/09/2014 23:59:59 [facility] Outpatient LOS DOSHI DO [id number] 07/27/2018 09:43:00 07/27/2018 23:59:59 CLS Outpatient ALBERTO VILLAR, LUZMA Whitaker [facility] ICU STEMI [id number] 02/19/2013 10:21:00 02/19/2013 23:59:59 CLS Outpatient CALVIN VILLAR, YESSY [facility] RAD LEFT SHOULDER ROTATOR CUFF IMPINGEMENT
== END 2018-07-30 08:45 | disposition home or self-care (01) | DRG 251 ==
LOC: EDUNIT# 09:40 → ER 09:41 → ICU 09:43 → CATH 09:43 → ICU 11:30 → CATH 11:30 → UNDOFXSDCSVC 07-28 08:38 → ICU 07-28 08:38 → CATH 07-30 08:45 → ICU 07-30 08:45
PROVIDERS: ADMIT Internal Medicine Cardiovascular Disease; ATTEND Internal Medicine Cardiovascular Disease
PROC: 02703ZZ Dilation of Coronary Artery, One Artery, Percutaneous Approach (ICD-10-PCS; principal; 2018-07-27)
PROC: 4A023N7 Measurement of Cardiac Sampling and Pressure, Left Heart, Percutaneous Approach (ICD-10-PCS; 2018-07-27)
PROC: B2151ZZ Fluoroscopy of Left Heart using Low Osmolar Contrast (ICD-10-PCS; 2018-07-27)
PROC: B2111ZZ Fluoroscopy of Multiple Coronary Arteries using Low Osmolar Contrast (ICD-10-PCS; 2018-07-27)
DX: I21.19 ST elevation (STEMI) myocardial infarction involving other coronary artery of inferior wall (principal); I25.10 Atherosclerotic heart disease of native coronary artery without angina pectoris; I10 Essential (primary) hypertension; E78.5 Hyperlipidemia, unspecified; R11.0 Nausea; F17.200 Nicotine dependence, unspecified, uncomplicated; I34.0 Nonrheumatic mitral (valve) insufficiency
CPT/HCPCS: 36415; 71045; 80048; 80053; 83735; 83874; 84484; 85025; 85027; 85610; 85730; 93005; 93041; 93306; 93458

== ENCOUNTER → 2019-06-30 | Outpatient (CLI) | payer OTHER ==
[~2019-06-30] VITALS: Ht 180 cm; Wt 85.0 kg
[~2019-06-30] MED LIST: ASPI-983 PO; ATOR80TA76 PO; CATHETER FLUSH 10 ML SYR IV PRN; CLOP75TA28 PO; FURO-125 PO; ISOS30TA3 PO; METO-351 PO; OMG1KC PO; PANT40TA3 PO
--- NOTE | 2019-06-30 17:59 | STRESS TEST ---
DATE OF SERVICE: 06/30/2019 EXERCISE MYOVIEW STRESS TEST REPORT REFERRING PHYSICIAN: No local physician. Baseline heart rate is 88. Baseline blood pressure 108/91. Baseline EKG is sinus rhythm with no ischemic changes. In summary, the patient was injected with 9.84 mCi of technetium-99 Myoview and the resting images were obtained. Then, the patient started exercising with a baseline heart rate, blood pressure and EKG mentioned above. The patient was able to exercise for a total of 7 minutes on standard Juan protocol. With peak exercise level, blood pressure was 199/82. EKG was showing minimal nondiagnostic changes. The patient was injected with a stress dose of 28.6 mCi of technetium-99 Myoview. During recovery, heart rate and blood pressure returned to baseline. EKG returned to baseline. The resting and stress images were reviewed and compared in the short axis, horizontal long axis, and vertical long axis views. Review of the images showed diaphragmatic attenuation with decreased uptake involving the whole inferior wall, inferoseptum and inferolateral wall with mild reversibility. SSS is 18, SDS 10, TID value 0.9. On the gated images, the left ventricle appeared to be normal size with hypokinesia at the inferior wall. Calculated ejection fraction 48%. IN CONCLUSION: 1. Fair exercise tolerance for a total of 7 minutes on standard Juan protocol, a total of 8.5 METS achieving 86% of maximum expected heart rate. 2. Nondiagnostic EKG changes with exercise returned to baseline during recovery. 3. Diaphragmatic attenuation with reversible ischemia involving the whole inferior wall, inferoseptum and inferolateral wall. 4. Normal left ventricular size with hypokinesia at the inferior wall. Calculated ejection fraction 48%. Job ID: [id number] DocumentID: [id number] Dictated Date: 06/30/2019 17:46:58 Principal Product Manager Date: 06/30/2019 17:59:09 Dictated By: LUZMA DOMINGUEZ MD
== END ==
LOC: CARD 11:45
PROVIDERS: ATTEND Internal Medicine Cardiovascular Disease
DX: I25.10 Atherosclerotic heart disease of native coronary artery without angina pectoris (principal); I34.0 Nonrheumatic mitral (valve) insufficiency; E78.2 Mixed hyperlipidemia; I51.89 Other ill-defined heart diseases
CPT/HCPCS: 78452; 93017

== ENCOUNTER 2020-12-23 09:50 | Emergency (ER) | payer BC, OTHER ==
[~2020-12-23] VITALS: Ht 182.8 cm; Wt 81.6 kg
[~2020-12-23 09:50] MED LIST changes: +ASPI-1238 PO; -ASPI-983 PO; -CATHETER FLUSH 10 ML SYR IV PRN; -ISOS30TA3 PO; +ISOS30TA82 PO; -PANT40TA3 PO; +PANT40TA52 PO
[2020-12-23] MEDS ORDERED: NS IV 1000 ML 1,000 ML IV ONE (10:00)
[2020-12-23 10:04] LABS: BASOPHILS % (AUTO) 0 % (0-10); EOSINOPHILS % (AUTO) 0 % (0-10); HEMATOCRIT 44 % (40-54); LYMPHOCYTES # (AUTO) 1.1 10^3/uL (1.0-4.0); LYMPHOCYTES % (AUTO) 9 % (12-44); MEAN CORPUSCULAR HEMOGLOBIN 33 pg (25-34); MEAN CORPUSCULAR HGB CONC 34 g/dL (32-36); MEAN CORPUSCULAR VOLUME 95 fL (80-99); MEAN PLATELET VOLUME 10.9 fL (9.0-12.2); MONOCYTES # (AUTO) 0.4 10^3/uL (0.0-1.0); MONOCYTES % (AUTO) 4 % (0-12); NEUTROPHILS # (AUTO) 10.5 10^3/uL (1.8-7.8); NEUTROPHILS % (AUTO) 86 % (42-75); PLATELET COUNT 144 10^3/uL (130-400); WHITE BLOOD COUNT 12.1 10^3/uL (4.3-11.0)
[2020-12-23] MEDS ORDERED: NS (IVPB) 250 ML ONE (10:14)
[2020-12-23] MEDS ORDERED: niCARdipine IV FOR DRIP 50 MG KIT ONE (10:14)
[2020-12-23 10:18] LABS: ALBUMIN 4.3 GM/DL (3.2-4.5); CHLORIDE 104 MMOL/L (98-107); POTASSIUM 3.8 MMOL/L (3.6-5.0); SODIUM 137 MMOL/L (135-145)
--- NOTE | 2020-12-23 10:18 | Diagnostic Imaging Report ---
INDICATION: Stroke. Comparison made with prior examination from 07/28/2018. FINDINGS: The heart size, mediastinal configuration, and pulmonary vascularity are within normal limits. There is no pleural effusion, pneumothorax, or pneumonia. The osseous structures are unremarkable. IMPRESSION: No acute cardiopulmonary abnormality. Dictated by: Dictated on workstation # [id number]
--- NOTE | 2020-12-23 10:18 | Diagnostic Imaging Report ---
PROCEDURE: CT head wo r/o stroke. TECHNIQUE: Multiple contiguous axial images were obtained through the brain without the use of intravenous contrast. Auto Exposure Controls were utilized during the CT exam to meet ALARA standards for radiation dose reduction. INDICATION: Suspected stroke. Neurologic deficit. COMPARISON: None. FINDINGS: Large intraparenchymal hemorrhage throughout the left temporal and occipital lobes. This measures approximately 3.7 x 9.4 x 4.0 cm (LR x AP x SI). Left to right midline shift measures 0.9 cm. There is some blood products within the compressed left lateral ventricle extending into the 3rd ventricle. No hydrocephalus. Osseous structures are intact. Paranasal sinuses and mastoids are unremarkable. Diffuse low-attenuation changes throughout the deep white matter. IMPRESSION: Large intraparenchymal hemorrhage throughout the left temporal and occipital lobes measuring up to 9.4 cm. Small amount of blood products within the left lateral and 3rd ventricles. Left to right midline shift measures up to 0.9 cm. Pertinent findings discussed with Dr. Ridge Morfin at 10:10 AM on 12/23/2020. Dictated by: Dictated on workstation # [id number]
[2020-12-23 10:19] LABS: LYMPHOCYTES % (MANUAL) 10 %; MONOCYTES % (MANUAL) 5 %; NEUTROPHILS % (MANUAL) 85 %
[2020-12-23 10:20] LABS: ANISOCYTOSIS SLIGHT; CALCIUM 8.9 MG/DL (8.5-10.1); HYPOCHROMASIA SLIGHT
[2020-12-23 10:21] LABS: GLUCOSE 133 MG/DL (70-105); TOTAL PROTEIN 7.2 GM/DL (6.4-8.2)
[2020-12-23 10:22] LABS: CARBON DIOXIDE 19 MMOL/L (21-32)
[2020-12-23 10:23] LABS: BILIRUBIN,TOTAL 0.5 MG/DL (0.1-1.0)
[2020-12-23 10:24] LABS: ALKALINE PHOSPHATASE 95 U/L (40-136); CREATININE SERUM 0.76 MG/DL (0.60-1.30); GFR ESTIMATED > 60
[2020-12-23 10:25] LABS: FIBRIN DEGRADATION PRODUCTS 0.7 UG/ML (0.00-0.49); PROTHROMBIN TIME PATIENT 13.4 SEC (12.2-14.7)
[2020-12-23 10:26] LABS: BUN/CREATININE RATIO 13
[2020-12-23 10:27] LABS: ALANINE AMINOTRANSFERASE 38 U/L (0-55)
[2020-12-23 10:48] LABS: BILIRUBIN,URINE NEGATIVE (NEGATIVE); CLARITY,URINE CLEAR; COLOR,URINE YELLOW; GLUCOSE, URINE (UA) NEGATIVE (NEGATIVE); KETONES,URINE NEGATIVE (NEGATIVE); LEUKOCYTE ESTERASE ,URINE NEGATIVE (NEGATIVE); NITRITE,URINE NEGATIVE (NEGATIVE); PH,URINE 7.5 (5-9); PROTEIN,URINE NEGATIVE (NEGATIVE)
[2020-12-23 11:01] LABS: AMORPHOUS SEDIMENT,UR FEW AMOR PHOSPHATE /LPF; BACTERIA,URINE NEGATIVE /HPF; SQUAMOUS EPITHELIAL CELL,UR RARE /HPF
[2020-12-23] MEDS ORDERED: ONDANSETRON 4 MG/2 ML (SDV) Z0FRAN ONE (11:07)
--- NOTE | 2020-12-23 11:08 | ED Syncope ---
General Chief Complaint: Neuro-Stroke Like Symptoms Stated Complaint: HEADACHE,CONFUSION Nursing Triage Note: PT BROUGHT IN BY [facility] FROM HOME WITH COMPLAINT OF HEADACHE AND CONFUSION. PER , AFTER PT WAS THROUGH WITH INTERCOURSE, HE BEGAN COMPLAINING OF HEADACHE AND ACTING CONFUSED. STATES SYMTPOMS STARTED 0600 AND WORSENED AROUND 0830. Source of Information: Patient Exam Limitations: No Limitations History of Present Illness Date Seen by Provider: Dec 23, 2020 Time Seen by Provider: 09:49 Initial Comments Here with report of acute onset of severe headache with confusion after coital relations with his this morning at about 6 AM. She reports that he continued with a headache and confusion and at about 830, the called the patient's sister who then came to check on him. At around 9 15-9 20, they de cided that he needed to be seen and called EMS. He arrived shortly before my evaluation. Patient does have confusion but is moving all 4 extremities. Does seem to be uncomfortable with relation to pain but denies nausea or vomiting currently. Patient is obviously confused but follows simple commands. History limited due to patient's underlying medical condition. After 's arrival, she does report that yesterday he worked outside for quite a while and was a little bit confused last night but he had been drinking beer and that seemed to have resolved. He was acting normally prior to coital relations this morning and does appear that the headache and confusion symptoms were acutely activated at the time of coital completion. Timing/Prior Episodes: No Prior History Symptoms Prior to Episode: Confusion, Lightheadedness Loss of Consciousness: No Loss of Consciousness Current Symptoms: Headache, Other (Confusion) Allergies and Home Medications Allergies Coded Allergies: No Known Drug Allergies (Unverified , 07/27/18) Home Medications Aspirin 81 Mg Tablet.dr, 81 MG PO DAILY Prescribed by: LUZMA DOMINGUEZ on 07/30/18727 Atorvastatin Calcium 80 Mg Tablet, 80 MG PO HS Prescribed by: LUZMA DOMINGUEZ on 07/30/18727 Clopidogrel Bisulfate 75 Mg Tablet, 75 MG PO DAILY Prescribed by: LUZMA DOMINGUEZ on 07/30/18727 Furosemide 20 Mg Tablet, 20 MG PO DAILY PRN for SHORTNESS OF BREATH Prescribed by: LUZMA DOMINGUEZ on 07/30/18 0729 Isosorbide Mononitrate 30 Mg Tab.er.24h, 30 MG PO DAILY Prescribed by: LUZMA DOMINGUEZ on 07/30/18727 Metoprolol Succinate 25 Mg Tab.er.24h, 25 MG PO DAILY Prescribed by: LUZMA DOMINGUEZ on 07/30/18727 Rydal 3 Polyunsat Fatty Acids 1,000 Mg Cap, 1,000 MG PO BID WITH MEALS Prescribed by: LUZMA DOMINGUEZ on 07/30/18727 Pantoprazole Sodium 40 Mg Tablet.dr, 40 MG PO DAILY@0700 Prescribed by: LUZMA DOMINUGEZ on 07/30/18727 Patient Home Medication List Home Medication List Reviewed: Yes Review of Systems Constitutional: see HPI; No chills, No fever Respiratory: No cough, No short of breath Cardiovascular: No chest pain, No edema Gastrointestinal: No nausea, No vomiting Review of systems limited due to underlying medical condition and confusion. All Other Systems Reviewed Negative Unless Noted: Yes Past Uysdepq-Zwxhpx-Tdrjbt Hx Past Med/Social Hx: Reviewed Nursing Past Med/Soc Hx Patient Social History Alcohol Use: Occasionally Uses Smoking Status: Current Everyday Smoker Recent Infectious Disease Expo: No Immunizations Up To Date Tetanus Booster (TDap): Unknown PED Vaccines UTD: Yes Date of Influenza Vaccine: Jun 15, 2018 Seasonal Allergies Seasonal Allergies: No Past Medical History Surgeries: Yes Respiratory: No Cardiac: Yes (murmur as a child ) Neurological: No Genitourinary: No Gastrointestinal: Yes Gastroesophageal Reflux Musculoskeletal: No Endocrine: No HEENT: No Cancer: No Psychosocial: No Integumentary: No Blood Disorders: No Family Medical History Reviewed Nursing Family Hx Patient reports no known family medical history. Physical Exam Vital Signs Vital Signs - First Documented 12/23/20 09:54 Pulse 82 Resp 16 B/P (MAP) 145/89 (107) Pulse Ox 99 O2 Delivery Room Air Capillary Refill : Less Than 3 Seconds Height, Weight, BMI Height: 6'0.00" Weight: 185lbs. 0.3oz. 83.017974ly; 24.00 BMI Method:Estimated General Appearance: No Apparent Distress, WD/WN HEENT: PERRL/EOMI, Pharynx Normal Neck: Non Tender, Supple Cardiovascular: Regular Rate, Rhythm, No Murmur Respiratory: Lungs Clear, Normal Breath Sounds Gastrointestinal: Non Tender, Soft Back: No CVA Tenderness, No Vertebral Tenderness Extremities: Normal Range of Motion, Non Tender, No Calf Tenderness Neurologic/Psychiatric: Alert, Oriented x3 Cranial Nerves: PERRL, Other (Answers basic questions slowly but does not appear to have slurred speech. No obvious facial droop) Coordination/Gait: Other (Moves all 4 extremities without difficulty and does not seem to have weakness in any of the 4 extremities although evaluation difficult due to underlying confusion) Skin: Normal Color, Warm/Dry Progress/Results/Core Measures Results/Orders Lab Results Laboratory Tests Test 12/23/20 09:54 12/23/20 09:56 12/23/20 10:41 Range/Units White Blood Count 12.1 H 4.3-11.0 10^3/uL Red Blood Count 4.61 4.30-5.52 10^6/uL Hemoglobin 15.0 13.3-17.7 g/dL Hematocrit 44 40-54 % Mean Corpuscular Volume 95 80-99 fL Mean Corpuscular Hemoglobin 33 25-34 pg Mean Corpuscular Hemoglobin Concent 34 32-36 g/dL Red Cell Distribution Width 13.9 10.0-14.5 % Platelet Count 144 130-400 10^3/uL Mean Platelet Volume 10.9 9.0-12.2 fL Immature Granulocyte % (Auto) 0 % Neutrophils (%) (Auto) 86 H 42-75 % Lymphocytes (%) (Auto) 9 L 12-44 % Monocytes (%) (Auto) 4 0-12 % Eosinophils (%) (Auto) 0 0-10 % Basophils (%) (Auto) 0 0-10 % Neutrophils # (Auto) 10.5 H 1.8-7.8 10^3/uL Lymphocytes # (Auto) 1.1 1.0-4.0 10^3/uL Monocytes # (Auto) 0.4 0.0-1.0 10^3/uL Eosinophils # (Auto) 0.0 0.0-0.3 10^3/uL Basophils # (Auto) 0.0 0.0-0.1 10^3/uL Immature Granulocyte # (Auto) 0.0 0.0-0.1 10^3/uL Neutrophils % (Manual) 85 % Lymphocytes % (Manual) 10 % Monocytes % (Manual) 5 % Hypochromasia SLIGHT Anisocytosis SLIGHT Blood Morphology Comment NA Prothrombin Time 13.4 12.2-14.7 SEC INR Comment 1.0 0.8-1.4 Activated Partial Thromboplast Time 25 24-35 SEC D-Dimer 0.70 H 0.00-0.49 UG/ML Sodium Level 137 135-145 MMOL/L Potassium Level 3.8 3.6-5.0 MMOL/L Chloride Level 104 98-107 MMOL/L Carbon Dioxide Level 19 L 21-32 MMOL/L Anion Gap 14 5-14 MMOL/L Blood Urea Nitrogen 10 7-18 MG/DL Creatinine 0.76 0.60-1.30 MG/DL Estimat Glomerular Filtration Rate > 60 BUN/Creatinine Ratio 13 Glucose Level 133 H 70-105 MG/DL Calcium Level 8.9 8.5-10.1 MG/DL Corrected Calcium 8.7 8.5-10.1 MG/DL Total Bilirubin 0.5 0.1-1.0 MG/DL Aspartate Amino Transf (AST/SGOT) 32 5-34 U/L Alanine Aminotransferase (ALT/SGPT) 38 0-55 U/L Alkaline Phosphatase 95 40-136 U/L Troponin I < 0.028 <0.028 NG/ML Total Protein 7.2 6.4-8.2 GM/DL Albumin 4.3 3.2-4.5 GM/DL Glucometer 132 H 70-110 MG/DL Urine Color YELLOW Urine Clarity CLEAR Urine pH 7.5 5-9 Urine Specific [place] 1.015 L 1.016-1.022 Urine Protein NEGATIVE NEGATIVE Urine Glucose (UA) NEGATIVE NEGATIVE Urine Ketones NEGATIVE NEGATIVE Urine Nitrite NEGATIVE NEGATIVE Urine Bilirubin NEGATIVE NEGATIVE Urine Urobilinogen 0.2 < = 1.0 MG/DL Urine Leukocyte Esterase NEGATIVE NEGATIVE Urine RBC (Auto) NEGATIVE NEGATIVE Urine RBC NONE /HPF Urine WBC NONE /HPF Urine Squamous Epithelial Cells RARE /HPF Urine Crystals PRESENT H /LPF Urine Amorphous Sediment FEW [place] PHOSPHATE H /LPF Urine Bacteria NEGATIVE /HPF Urine Casts NONE /LPF Urine Mucus NEGATIVE /LPF Urine Culture Indicated NO My Orders Orders - RIDGE GAINES MD Cbc With Automated Diff (12/23/20 09:58) Protime With Inr (12/23/20 09:58) Partial Thromboplastin Time (12/23/20 09:58) Comprehensive Metabolic Panel (12/23/20 09:58) Fibrin Degradation Products (12/23/20 09:58) Troponin I (12/23/20 09:58) Ua Culture If Indicated (12/23/20 09:58) Chest 1 View, Ap/Pa Only (12/23/20 09:58) Ekg Tracing (12/23/20:58) Nothing By Mouth (12/23/20 Lunch) Accucheck Stat ONCE (12/23/20 09:58) Ed Iv/Invasive Line Start (12/23/20 09:58) Ed Iv/Invasive Line Start (12/23/20 09:58) Vital Signs Stroke Patient Q15M (12/23/20 09:58) Ct Head Wo-R/O Stroke (12/23/20 09:58) O2 (12/23/20 09:58) Intake & Output 06,14,22 (12/23/20:58) Monitor-Rhythm Ecg Trace Only (12/23/20:58) Dysphagia Screening Tool (12/23/20:58) Post Thrombolytic Adminstratio (12/23/20 09:58) Lipid Panel (12/24/20 06:00) Ns Iv 1000 Ml (Sodium Chloride 0.9%) (12/23/20 10:00) Manual Differential (12/23/20 09:54) Nicardipine Iv For Drip (Cardene I.V. (O (12/23/20 10:14) Ns (Ivpb) (Sodium Chloride 0.9%) (12/23/20 10:14) Ns (Ivpb) (Sodium C... W/Nicardipine Iv (12/23/20 11:15) Fentanyl Inj (Sublimaze Injection) (12/23/20 11:10) Ondansetron Injection (Zofran Injectio (12/23/20 11:07) Vital Signs/I&O 12/23/20 09:54 Pulse 82 Resp 16 B/P (MAP) 145/89 (107) Pulse Ox 99 O2 Delivery Room Air Blood Pressure Mean: 107 FSBG Bedside Testing Finger Stick Blood Glucose: 132 Progress Progress Note : Progress Note Seen and evaluated on arrival by EMS. Stroke activation initiated and patient rapidly to CT. 1025: Patient noted to have left intraparenchymal bleed and discussed with radiology. Not obvious aneurysmal component although does appear to be acute bleed from this morning by history. I have have attempted contact with [facility] in [place], [place]. They have no critical care beds. 1140: I have contacted [facility] in [facility]. Patient exceeds level of care there due to concerns about possible AV malformation and/or spontaneous aneurysmal rupture as discussed with Dr. Birch, neurosurgeon on-call there. He is recommending transfer to higher level center and [facility] in [facility] is capable for this. We have initiated transfer proceedings there. 1055: I have discussed the case with the neurosurgeon on-call at [facility] and [place], [place], Dr. Holland and he accepts patient but would like the patient to go from ER to ER. 1105: I have discussed the case with Dr. Cullen, ER physician information technology technician. Case reviewed. He accepts patient for olivia hansen. We are currently trying to arrange flight versus ground ambulance due to distance and severity of illness although weather may be an issue. 1130: We are unable to initiate flight transport due to weather and ground transport has been initiated. Patient is on Cardene drip to keep blood pressure less than 140 systolic. Patient has had nausea and vomiting now. Zofran 4 mg IV and fentanyl 50 mcg IV given. I have updated the family on all aspects of care, findings and decision for transfer and they are in full agreement. Monitor patient. Initial ECG Impression Date: Dec 23, 2020 Initial ECG Impression Time: 09:55 Initial ECG Rate: 81 Initial ECG Rhythm: Normal Sinus Initial ECG Intervals: Normal Initial ECG Impression: Normal Comment Sinus rhythm with left atrial abnormality. Inferior infarct age undetermined. Normal axis. No evidence of ST elevation [place]. Similar to 07/28/2018. Interpreted by me. Diagnostic Imaging Diagonstic Imaging: CT Plain Films/CT/US/NM/MRI: head Comments [facility] [place] [place] NAME: KARYN NGO [facility] REC#: [id number] PT STATUS: REG ER : 1960 PHYSICIAN: RIDGE GAINES MD ADMIT DATE: 12/23/20/ER Draft Date of Exam:12/23/20 CT HEAD WO-R/O STROKE PROCEDURE: CT head wo r/o stroke. TECHNIQUE: Multiple contiguous axial images were obtained through the brain without the use of intravenous contrast. Auto Exposure Controls were utilized during the CT exam to meet ALARA standards for radiation dose reduction. INDICATION: Suspected stroke. Neurologic deficit. COMPARISON: None. FINDINGS: Large intraparenchymal hemorrhage throughout the left temporal and occipital lobes. This measures approximately 3.7 x 9.4 x 4.0 cm (LR x AP x SI). Left to right midline shift measures 0.9 cm. There is some blood products within the compressed left lateral ventricle extending into the 3rd ventricle. No hydrocephalus. Osseous structures are intact. Paranasal sinuses and mastoids are unremarkable. Diffuse low-attenuation changes throughout the deep white matter. IMPRESSION: Large intraparenchymal hemorrhage throughout the left temporal and occipital lobes measuring up to 9.4 cm. Small amount of blood products within the left lateral and 3rd ventricles. Left to right midline shift measures up to 0.9 cm. Pertinent findings discussed with Dr. Ridge Gaines at 10:10 AM on 12/23/2020. Dictated on workstation # [id number] Dict: 12/23/20 1007 Trans: 12/23/20 1018 KATHIE [id number] Interpreted by: GUTIERREZ SINCLAIR MD Electronically signed by: [place] Imaging: Xray Plain Films/CT/US/NM/MRI: chest Comments [facility] [place] [place] NAME: KARYN NGO [facility] REC#: [id number] PT STATUS: REG ER : 1960 PHYSICIAN: RIDGE GAINES MD ADMIT DATE: 12/23/20/ER Signed Date of Exam:12/23/20 CHEST 1 VIEW, AP/PA ONLY INDICATION: Stroke. Comparison made with prior examination from 07/28/2018. FINDINGS: The heart size, mediastinal configuration, and pulmonary vascularity are within normal limits. There is no pleural effusion, pneumothorax, or pneumonia. The osseous structures are unremarkable. IMPRESSION: No acute cardiopulmonary abnormality. Dictated by: Dictated on workstation # [id number] Dict: 12/23/20 1016 Trans: 12/23/20 1021 KATHIE [id number] Interpreted by: ANG JACKSON MD Electronically signed by: ANG JACKSON MD 12/23/20 1021 Critical Care Note Critical Care Start Time: 09:49 Stop Time: 11:37 Total Time (minutes) 45 Departure Impression Primary Impression: Intraparenchymal hemorrhage of brain Disposition: XFER SHT-TRM HOSP Condition: Critical Transfer Transfer Reason: Exceeds level of care Time Spoke to Accepting Phy: 10:55 Transfer Facility: [place], [place], Dr. Cullen accepting Method of Transfer: EMS Departure-Patient Inst. Referrals: NO,LOCAL PHYSICIAN (PCP/Family) Primary Care Physician Copy Copies To 1: LUZMA DOMINGUEZ MD, TIMOTHY D MD Dec 23, 2020 11:08
[2020-12-23] MEDS ORDERED: fentaNYL INJ 100 MCG/2 ML AMP IVP STA (11:10)
[2020-12-23] MEDS ORDERED: niCARdipine IV 50 MG in NS (IVPB) 230 ML IV SCH (11:15)
[2020-12-23 12:01] VITALS: BP 152/77
== END 2020-12-23 12:01 | disposition short-term general hospital (02) ==
LOC: EDUNIT# 09:50 → ER 09:52
DX: I61.9 Nontraumatic intracerebral hemorrhage, unspecified (principal); K21.9 Gastro-esophageal reflux disease without esophagitis; F17.200 Nicotine dependence, unspecified, uncomplicated; Z79.82 Long term (current) use of aspirin
CPT/HCPCS: 36415; 51702; 70450; 71045; 80053; 81000; 82962; 84484; 85007; 85027; 85379; 85610; 85730; 93005; 93041

== ENCOUNTER 2021-01-16 12:11 | Emergency (ER) | payer BC ==
[~2021-01-16] VITALS: Ht 182.8 cm; Wt 77.5 kg
[2021-01-16 13:27] LABS: BILIRUBIN,URINE NEGATIVE (NEGATIVE); CLARITY,URINE CLEAR; COLOR,URINE YELLOW; GLUCOSE, URINE (UA) NEGATIVE (NEGATIVE); KETONES,URINE NEGATIVE (NEGATIVE); LEUKOCYTE ESTERASE ,URINE NEGATIVE (NEGATIVE); NITRITE,URINE NEGATIVE (NEGATIVE); PROTEIN,URINE NEGATIVE (NEGATIVE)
--- NOTE | 2021-01-16 13:30 | ED Lower Extremity ---
General Chief Complaint: Lower Extremity Stated Complaint: L LEG TIGHT/PAIN ABD PAIN Nursing Triage Note: Pt ambulatory to ED with . did most of talking. reports pt had stroke on 12/23/2020. Then pt was diagnosed with a blood clot in the L knee. An angiocele was placed at that time. Pt was discharged from hospital on 01/12/2021. Pt reports L leg pain in the calf and ankle. Pt reports warmth and tightness. Pt also reports lower abdominal pain that began this morning. Pt reports small bowel movement this morning. Nursing Sepsis Screen: No Definite Risk History of Present Illness Date Seen by Provider: January 16, 2021 Time Seen by Provider: 13:00 Initial Comments 60-year-old male reports a 2-day history of left calf pain, he was discharged from [facility] on 01/12/21. He denies any increased activity over the last few days but he is also not been sedentary or on bedrest. He was recently admitted for a hemorrhagic stroke and transferred from this emergency department to [facility] in [facility] where he had a craniotomy (12/23/20 CT Head Large intraparenchymal hemorrhage throughout the left temporal and occipital lobes measuring up to 9.4 cm. He did require surgery.) He was diagnosed with a DVT in his left leg at that time and a IVC filter was placed, as he could not be anti-coagulated. Patient is has some confusion with historical health information, since the stroke. Today he had some lower abdominal pain, he reports chronic hemorrhoid issues and some constipation since the surgery. He is on a stool softener but quit taking it as he was having some diarrhea. He denies any nausea or vomiting. He reports normal appetite. He uses a cane at times for ambulation for some mild weakness on his right lower extremity. He was seen at urgent care earlier today and referred here for his leg. He does not see a primary care provider regularly. He has been scheduled to see a physician in [place] for follow-up after his admission to the hospital. Onset: yesterday Pain/Injury Location: left leg Method of Injury: unknown Allergies and Home Medications Allergies Coded Allergies: No Known Drug Allergies (Unverified , 07/27/18) Home Medications Aspirin 81 Mg Tablet., 81 MG PO DAILY Prescribed by: LUZMA DOMINGUEZ on 07/30/18727 Atorvastatin Calcium 80 Mg Tablet, 80 MG PO HS Prescribed by: LUZMA DOMINGUEZ on 07/30/18727 Clopidogrel Bisulfate 75 Mg Tablet, 75 MG PO DAILY Prescribed by: LUZMA DOMINGUEZ on 07/30/18727 Furosemide 20 Mg Tablet, 20 MG PO DAILY PRN for SHORTNESS OF BREATH Prescribed by: LUZMA DOMINGUEZ on 07/30/18728 Isosorbide Mononitrate 30 Mg Tab.er.24h, 30 MG PO DAILY Prescribed by: LUZMA DOMINGUEZ on 07/30/18727 Metoprolol Succinate 25 Mg Tab.er.24h, 25 MG PO DAILY Prescribed by: LUZMA DOMINGUEZ on 07/30/18727 Corona 3 Polyunsat Fatty Acids 1,000 Mg Cap, 1,000 MG PO BID WITH MEALS Prescribed by: LUZMA DOMINGUEZ on 07/30/18727 Pantoprazole Sodium 40 Mg Tablet.dr, 40 MG PO DAILY@0700 Prescribed by: LUZMA DOMINGUEZ on 07/30/18727 Patient Home Medication List Home Medication List Reviewed: Yes Review of Systems Constitutional: no symptoms reported, see HPI EENTM: see HPI, no symptoms reported Respiratory: no symptoms reported, see HPI; No cough, No dyspnea on exertion Cardiovascular: no symptoms reported, see HPI; No chest pain Gastrointestinal: RLQ, LLQ, see HPI, abdominal pain (LLQ), constipation; No diarrhea, No jaundice, No loss of appetite, No nausea, No vomiting Musculoskeletal: muscle pain (Left gastrocnemius) All Other Systems Reviewed Negative Unless Noted: Yes Past Muaojxb-Tyvhoo-Tloiuu Hx Past Med/Social Hx: Reviewed Nursing Past Med/Soc Hx Patient Social History Alcohol Use: Past History Smoking Status: Current Everyday Smoker Type Used: Cigarettes 2nd Hand Smoke Exposure: Yes Recent Infectious Disease Expo: No Recent Hopitalizations: Yes (hemorrhagic stroke) Immunizations Up To Date Tetanus Booster (TDap): Unknown PED Vaccines UTD: Yes Date of Influenza Vaccine: Jun 15, 2018 Seasonal Allergies Seasonal Allergies: No Past Medical History Surgeries: Yes (brain, angiocele, L shoulder) Appendectomy Respiratory: No Cardiac: Yes (murmur as a child ) Heart Attack Neurological: Yes Stroke Genitourinary: No Gastrointestinal: No Gastroesophageal Reflux Musculoskeletal: No Endocrine: No HEENT: No Cancer: No Psychosocial: No Integumentary: No Blood Disorders: No Family Medical History Patient reports no known family medical history. Physical Exam Vital Signs Vital Signs - First Documented 01/16/21 12:20 Temp 37.0 Pulse 65 Resp 18 B/P (MAP) 131/81 (98) Pulse Ox 97 O2 Delivery Room Air Capillary Refill : Less Than 3 Seconds Height, Weight, BMI Height: 6'0.00" Weight: 185lbs. 0.3oz. [id number]; 23.00 BMI Method:Estimated General Appearance: WD/WN, no apparent distress HEENT: PERRL/EOMI, normal ENT inspection, TMs normal, pharynx normal Neck: non-tender, full range of motion, supple, normal inspection Cardiovascular: normal peripheral pulses, regular rate, rhythm, no edema, no murmur Respiratory: chest non-tender, lungs clear, normal breath sounds Gastrointestinal: normal bowel sounds, non tender, soft; No distended, No guarding, No rebound, No tenderness; other (Scar right lower quadrant compatible with history of appendectomy.) Back: normal inspection, no CVA tenderness, no vertebral tenderness Legs: bilateral leg other (Negative Homans bilaterally) Knees: bilateral knee non-tender, bilateral knee normal inspection, bilateral knee normal range of motion, bilateral knee no evidence of injury Ankles: bilateral ankle non-tender, bilateral ankle normal inspection, bilateral ankle normal range of motion, bilateral ankle no evidence of injury Neurologic/Tendon: normal sensation, normal motor functions, normal tendon functions Neurologic/Psychiatric: no motor/sensory deficits, alert, normal mood/affect, oriented x 3 Skin: normal color, warm/dry Progress/Results/Core Measures Results/Orders Lab Results Laboratory Tests Test 01/16/21 12:40 01/16/21 13:35 01/16/21 14:06 Range/Units Urine Color YELLOW Urine Clarity CLEAR Urine pH 6.0 5-9 Urine Specific [place] <=1.005 1.016-1.022 Urine Protein NEGATIVE NEGATIVE Urine Glucose (UA) NEGATIVE NEGATIVE Urine Ketones NEGATIVE NEGATIVE Urine Nitrite NEGATIVE NEGATIVE Urine Bilirubin NEGATIVE NEGATIVE Urine Urobilinogen 0.2 < = 1.0 MG/DL Urine Leukocyte Esterase NEGATIVE NEGATIVE Urine RBC (Auto) NEGATIVE NEGATIVE Urine RBC NONE /HPF Urine WBC NONE /HPF Urine Crystals NONE /LPF Urine Bacteria NEGATIVE /HPF Urine Casts NONE /LPF Urine Mucus NEGATIVE /LPF Urine Culture Indicated NO White Blood Count 8.0 4.3-11.0 10^3/uL Red Blood Count 4.32 4.30-5.52 10^6/uL Hemoglobin 13.7 13.3-17.7 g/dL Hematocrit 41 40-54 % Mean Corpuscular Volume 96 80-99 fL Mean Corpuscular Hemoglobin 32 25-34 pg Mean Corpuscular Hemoglobin Concent 33 32-36 g/dL Red Cell Distribution Width 13.2 10.0-14.5 % Platelet Count 164 130-400 10^3/uL Mean Platelet Volume 10.8 9.0-12.2 fL Immature Granulocyte % (Auto) 1 % Neutrophils (%) (Auto) 73 42-75 % Lymphocytes (%) (Auto) 18 12-44 % Monocytes (%) (Auto) 5 0-12 % Eosinophils (%) (Auto) 2 0-10 % Basophils (%) (Auto) 1 0-10 % Neutrophils # (Auto) 5.9 1.8-7.8 10^3/uL Lymphocytes # (Auto) 1.5 1.0-4.0 10^3/uL Monocytes # (Auto) 0.4 0.0-1.0 10^3/uL Eosinophils # (Auto) 0.1 0.0-0.3 10^3/uL Basophils # (Auto) 0.1 0.0-0.1 10^3/uL Immature Granulocyte # (Auto) 0.0 0.0-0.1 10^3/uL Sodium Level 142 135-145 MMOL/L Potassium Level 4.0 3.6-5.0 MMOL/L Chloride Level 104 98-107 MMOL/L Carbon Dioxide Level 24 21-32 MMOL/L Anion Gap 14 5-14 MMOL/L Blood Urea Nitrogen 7 7-18 MG/DL Creatinine 0.75 0.60-1.30 MG/DL Estimat Glomerular Filtration Rate > 60 BUN/Creatinine Ratio 9 Glucose Level 95 70-105 MG/DL Calcium Level 9.5 8.5-10.1 MG/DL Corrected Calcium 9.3 8.5-10.1 MG/DL Total Bilirubin 0.4 0.1-1.0 MG/DL Aspartate Amino Transf (AST/SGOT) 20 5-34 U/L Alanine Aminotransferase (ALT/SGPT) 16 0-55 U/L Alkaline Phosphatase 107 40-136 U/L Total Protein 7.6 6.4-8.2 GM/DL Albumin 4.3 3.2-4.5 GM/DL Prothrombin Time 14.0 12.2-14.7 SEC INR Comment 1.0 0.8-1.4 Activated Partial Thromboplast Time 30 24-35 SEC My Orders Orders - LUCÍA MARQUEZ DWAYNE Us Venous Lower Ext Lt (01/16/21 13:22) Cbc With Automated Diff (01/16/21 13:22) Comprehensive Metabolic Panel (01/16/21 13:22) Protime With Inr (01/16/21 13:22) Partial Thromboplastin Time (01/16/21 13:22) Ua Culture If Indicated (01/16/21 13:22) Ibuprofen Tablet (Motrin Tablet) (01/16/21 15:13) Vital Signs/I&O 01/16/21 01/16/21 12:20 15:31 Temp 37.0 37.0 Pulse 65 67 Resp 18 18 B/P (MAP) 131/81 (98) 134/86 (98) Pulse Ox 97 97 O2 Delivery Room Air Room Air Blood Pressure Mean: 98 Progress Progress Note : Time: 13:00 Progress Note Patient seen and evaluated, will obtain labs and ultrasound of the left lower extremity. 1400 ultrasound reviewed shows an occlusive thrombus extending from the distal aspect of the superficial femoral vein through the popliteal vein and into the calf veins. Patient and are unsure of the size or length of the occlusion when he was evaluated at [facility] in [place]. Will attempt to speak with the physician team there. 1440 Spoke to RN at Dr. Andino's office, they recommend follow up with his PCP. He has appt with PCP in [place], [place] for initial visit on 01/19/21. She will verify with the neurosurgeon [employer] if any additional treatment is needed. 1500 spoke with the RN from the neurosurgeons office, recommended no anticoagulation after visiting with the MANAGER SERV[employer]ING. He may use ibuprofen 600 mg as needed. They will call him to schedule a CT of the head prior to his follow-up on 01/26/2021. This information was shared with the patient and his , they were agreeable. Discharge instructions and return precautions reviewed with the patient. Explained to the patient the reason to not anticoagulate and why he has the IVC filter. Diagnostic Imaging Diagonstic Imaging: Ultrasound Plain Films/CT/US/NM/MRI: leg Comments NAME: KARYN [facility] REC#: [id number] PT STATUS: REG ER : 1960 PHYSICIAN: LUCÍA MARQUEZ ADMIT DATE: 01/16/21/ER Draft Date of Exam:01/16/21 US VENOUS LOWER EXT LT PROCEDURE: US left lower extremity venous. TECHNIQUE: Multiple real-time grayscale images were obtained over the left lower extremity in various projections. Additional duplex Doppler and color Doppler images were also obtained. INDICATION: Left lower extremity deep venous thrombosis. The left common femoral and superficial femoral veins are patent. However there is occlusive thrombus extending from the distal aspect of the superficial femoral vein through the popliteal vein and into calf veins. IMPRESSION: Occlusive deep venous thrombosis involving the left popliteal vein as well as veins of the left calf. Dictated on workstation # [id number] Dict: 01/16/21 1410 Trans: 01/16/21 1412 [facility] [id number] Interpreted by: SHAY HERNANDEZ MD Electronically signed by: Reviewed: Reviewed by Me, Reviewed/Discussed Departure Impression Primary Impression: Status post CVA Additional Impression: Deep vein thrombosis (DVT) of left lower extremity Qualified Codes: I82.412 - Acute embolism and thrombosis of left femoral vein Disposition: 01 HOME, SELF-CARE Condition: Improved Departure-Patient Inst. Decision time for Depature: 15:00 Referrals: NO,LOCAL PHYSICIAN (PCP/Family) Primary Care Physician Patient Instructions: Deep Vein Thrombosis (DVT) ED Add. Discharge Instructions: Conservative measures for the DVT in the left lower leg, you may take ibuprofen 600 mg every 8 hours. Keep your scheduled appointment with your PCP in [place] for January 19 and your appointment for neurosurgery follow-up on January 26. The neurosurgeons office will schedule an outpatient CT prior to your follow-up on January 26. They will be contacting you with this information. Activity as tolerated. Return to the emergency department for new, urgent healthcare needs. All discharge instructions reviewed with patient and/or family. Voiced understanding. LUCÍA MARQUEZ January 16, 2021 13:30
[2021-01-16 13:39] LABS: BACTERIA,URINE NEGATIVE /HPF
[2021-01-16 13:47] LABS: BASOPHILS # (AUTO) 0.1 10^3/uL (0.0-0.1); BASOPHILS % (AUTO) 1 % (0-10); EOSINOPHILS # (AUTO) 0.1 10^3/uL (0.0-0.3); EOSINOPHILS % (AUTO) 2 % (0-10); HEMATOCRIT 41 % (40-54); HEMOGLOBIN 13.7 g/dL (13.3-17.7); LYMPHOCYTES # (AUTO) 1.5 10^3/uL (1.0-4.0); LYMPHOCYTES % (AUTO) 18 % (12-44); MEAN CORPUSCULAR HEMOGLOBIN 32 pg (25-34); MEAN CORPUSCULAR HGB CONC 33 g/dL (32-36); MEAN CORPUSCULAR VOLUME 96 fL (80-99); MEAN PLATELET VOLUME 10.8 fL (9.0-12.2); MONOCYTES # (AUTO) 0.4 10^3/uL (0.0-1.0); MONOCYTES % (AUTO) 5 % (0-12); NEUTROPHILS # (AUTO) 5.9 10^3/uL (1.8-7.8); NEUTROPHILS % (AUTO) 73 % (42-75); PLATELET COUNT 164 10^3/uL (130-400)
[2021-01-16 14:05] LABS: ALBUMIN 4.3 GM/DL (3.2-4.5); CHLORIDE 104 MMOL/L (98-107); SODIUM 142 MMOL/L (135-145)
[2021-01-16 14:06] LABS: CALCIUM 9.5 MG/DL (8.5-10.1)
[2021-01-16 14:07] LABS: GLUCOSE 95 MG/DL (70-105); TOTAL PROTEIN 7.6 GM/DL (6.4-8.2)
[2021-01-16 14:08] LABS: CARBON DIOXIDE 24 MMOL/L (21-32)
[2021-01-16 14:09] LABS: BILIRUBIN,TOTAL 0.4 MG/DL (0.1-1.0)
[2021-01-16 14:11] LABS: ALKALINE PHOSPHATASE 107 U/L (40-136); CREATININE SERUM 0.75 MG/DL (0.60-1.30); GFR ESTIMATED > 60
[2021-01-16 14:12] LABS: BUN/CREATININE RATIO 9
--- NOTE | 2021-01-16 14:12 | Diagnostic Imaging Report ---
PROCEDURE: US left lower extremity venous. TECHNIQUE: Multiple real-time grayscale images were obtained over the left lower extremity in various projections. Additional duplex Doppler and color Doppler images were also obtained. INDICATION: Left lower extremity deep venous thrombosis. The left common femoral and superficial femoral veins are patent. However there is occlusive thrombus extending from the distal aspect of the superficial femoral vein through the popliteal vein and into calf veins. IMPRESSION: Occlusive deep venous thrombosis involving the left popliteal vein as well as veins of the left calf. Dictated by: Dictated on workstation # [id number]
[2021-01-16 14:14] LABS: ALANINE AMINOTRANSFERASE 16 U/L (0-55)
[2021-01-16] MEDS ORDERED: IBUPROFEN 800 MG (MOTRIN) TAB PO STA (15:13)
[2021-01-16 15:31] VITALS: BP 134/86
== END 2021-01-16 14:55 | disposition home or self-care (01) ==
LOC: EDUNIT# 12:11 → ER 12:13
DX: I82.402 Acute embolism and thrombosis of unspecified deep veins of left lower extremity (principal); K21.9 Gastro-esophageal reflux disease without esophagitis; I25.2 Old myocardial infarction; F17.210 Nicotine dependence, cigarettes, uncomplicated; Z86.73 Personal history of transient ischemic attack (TIA), and cerebral infarction without residual deficits; Z79.899 Other long term (current) drug therapy; Z79.82 Long term (current) use of aspirin
CPT/HCPCS: 36415; 80053; 81000; 85025; 85610; 85730

== ENCOUNTER → 2021-05-10 | Outpatient (CLI) | payer BC | LOC: CARD 13:00 | PROVIDERS: ATTEND Internal Medicine Cardiovascular Disease | DX: I11.9 Hypertensive heart disease without heart failure (principal) | CPT/HCPCS: 93306 ==

== ENCOUNTER 2022-02-03 18:38 | Observation (INO) | payer BC ==
[~2022-02-03] VITALS: Ht 182.9 cm; Wt 93.8 kg
[2022-02-03] MEDS ORDERED: NS IV 1000 ML 1,000 ML ONE (18:51)
[2022-02-03] MEDS ORDERED: morphine INJ 10 MG/ML 1ML (SYR OR VIAL) ONE (18:51)
[2022-02-03] MEDS ORDERED: ONDANSETRON 4 MG/2 ML (SDV) Z0FRAN ONE (18:51)
[2022-02-03] MEDS ORDERED: morphine INJ 10 MG/ML 1ML (SYR OR VIAL) IVP STA ×3 (18:52→19:56)
[2022-02-03] MEDS ORDERED: TETANUS,DIPTH,PERTUSS P/F (BOOSTRIX) 0.5 ML VIAL IM ONE (19:00)
[2022-02-03] MEDS ORDERED: NS IV 1000 ML 1,000 ML IV SCH (19:00)
[2022-02-03] MEDS ORDERED: ONDANSETRON 4 MG/2 ML (SDV) Z0FRAN IVP ONE (19:00)
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
--- NOTE | 2022-02-03 19:29 | Diagnostic Imaging Report ---
EXAMINATION: Right tibia and fibular radiograph. EXAM DATE: 02/03/2022. COMPARISON: None. HISTORY: Right leg pain. TECHNIQUE: 4 views of the right tibia and fibula. FINDINGS: There is an acute, spiral type fracture of the proximal right fibula. There is mild displacement measuring up to 3 mm. There is an acute displaced spiral type fracture of the distal right tibia with 7 to 8 mm of displacement. The joint spaces are preserved. There is soft tissue swelling. IMPRESSION: Acute spiral type fractures of the proximal right fibula and distal right tibia. Dictated by: Dictated on workstation # [id number]
[2022-02-03 19:43] LABS: BASOPHILS # (AUTO) 0.1 10^3/uL (0.0-0.1); BASOPHILS % (AUTO) 1 % (0-10); EOSINOPHILS # (AUTO) 0.2 10^3/uL (0.0-0.3); EOSINOPHILS % (AUTO) 2 % (0-10); HEMATOCRIT 41 % (40-54); HEMOGLOBIN 14.2 g/dL (13.3-17.7); LYMPHOCYTES # (AUTO) 3.2 10^3/uL (1.0-4.0); LYMPHOCYTES % (AUTO) 30 % (12-44); MEAN CORPUSCULAR HEMOGLOBIN 33 pg (25-34); MEAN CORPUSCULAR HGB CONC 35 g/dL (32-36); MEAN CORPUSCULAR VOLUME 93 fL (80-99); MEAN PLATELET VOLUME 11.9 fL (9.0-12.2); MONOCYTES # (AUTO) 0.6 10^3/uL (0.0-1.0); MONOCYTES % (AUTO) 6 % (0-12); NEUTROPHILS # (AUTO) 6.5 10^3/uL (1.8-7.8); NEUTROPHILS % (AUTO) 61 % (42-75); PLATELET COUNT 191 10^3/uL (130-400); WHITE BLOOD COUNT 10.7 10^3/uL (4.3-11.0)
[2022-02-03 20:08] LABS: CALCIUM 8.8 MG/DL (8.5-10.1); CREATININE SERUM 0.76 MG/DL (0.60-1.30); POTASSIUM 3.7 MMOL/L (3.6-5.0)
[2022-02-03 21:25] VITALS: BP 99/54
[2022-02-03] MEDS ORDERED: ONDANSETRON 4 MG (ZOFRAN) ORAL DISSOLVE TAB SL PRN (22:15)
[2022-02-03] MEDS ORDERED: SENNA W/DOCUSATE (SENOKOT S) TABLET PO PRN (22:15)
[2022-02-03] MEDS ORDERED: ANTACID SUSP 30 ML UDC (MYLANTA) PO PRN (22:15)
[2022-02-03] MEDS ORDERED: D5 1/2 NS 1000 ML IV SOLUTION 1,000 ML IV PRN (22:15)
[2022-02-03] MEDS ORDERED: LORazepam INJ 2 MG/ML (ATIVAN) VIAL IM/IV PRN (22:15)
[2022-02-03] MEDS ORDERED: LORazepam INJ 2 MG/ML (ATIVAN) VIAL IV PRN (22:15)
[2022-02-03] MEDS ORDERED: LORazepam 1 MG (ATIVAN) TAB PO PRN (22:15)
[2022-02-03] MEDS ORDERED: ONDANSETRON 4 MG/2 ML (SDV) Z0FRAN IV PRN (22:15)
[2022-02-03] MEDS ORDERED: 1/2 NS IV SOLUTION 1,000 ML IV PRN (22:15)
[2022-02-03] MEDS ORDERED: morphine INJ 10 MG/ML 1ML (SYR OR VIAL) IV PRN (23:00)
[2022-02-03] MEDS ORDERED: RT-ALBUTEROL/IPRATROPIUM 3 ML (DUONEB) VIAL INH PRN (23:15)
[2022-02-03 23:29] VITALS: BP 104/59
[2022-02-04] VITALS (12 sets, daily range): BP systolic 95–160; BP diastolic 57–79
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
[2022-02-04] MEDS: NS IV 1000 ML 1,000 ML IV SCH ×3 (07:48→18:48)
[2022-02-04] MEDS ORDERED: ceFAZolin 2 GM IV Premixed 50 ML IV NR (08:00)
[2022-02-04] MEDS ORDERED: BUPIVACAINE 0.25% 10 ML (SENSORCAINE) VIAL ONE (08:16)
[2022-02-04] MEDS: PANTOPRAZOLE 40 MG (PROTONIX) TAB PO SCH (08:31)
[2022-02-04] MEDS: THIAMINE INJECTION 100 MG, FOLIC ACID INJECTION 1 MG, MAGNESIUM SULFATE 2 GM, VITAMIN M... IV SCH ×5 (08:31)
[2022-02-04] MEDS: LACTATED RINGERS 1,000 ML IV PRN ×2 (08:40→10:40)
[2022-02-04] MEDS ORDERED: ONDANSETRON 4 MG/2 ML (SDV) Z0FRAN ONE (08:49)
[2022-02-04] MEDS ORDERED: MIDAZOLAM 2 MG/2 ML (VERSED) VIAL ONE (08:49)
[2022-02-04] MEDS ORDERED: fentaNYL INJ 100 MCG/2 ML AMP ONE (08:49)
[2022-02-04] MEDS ORDERED: proPOfol 200 MG/20 ML (DIPRIVAN) VIAL IV ONE (08:49)
[2022-02-04] MEDS ORDERED: LIDOCAINE PF 2% 5 ML (XYLOCAINE) VIAL ONE (08:49)
[2022-02-04] MEDS ORDERED: ESMOLOL 100 MG/10 ML (BREVIBLOC) VIAL ONE (09:22)
[2022-02-04] MEDS ORDERED: SEVOFLURANE (ULTANE) 15 ML INHAL SOLN ONE (11:30)
[2022-02-04] MEDS ORDERED: PROMETHAZINE INJ 25 MG/ML (PHENERGAN) AMP IVP ONE (11:45)
[2022-02-04] MEDS ORDERED: morphine INJ 10 MG/ML 1ML (SYR OR VIAL) IVP ONE (11:45)
[2022-02-04] MEDS ORDERED: HYDROmorphone 2 MG/ML VIAL (DILAUDID) IV ONE (11:45)
[2022-02-04] MEDS ORDERED: ONDANSETRON 4 MG/2 ML (SDV) Z0FRAN IVP PRN (11:45)
--- NOTE | 2022-02-04 11:56 | Operative Report - Ortho ---
Operative Report Surgeon (s)/Spot Checker (s) Surgeon FORD MARK MD Spot Checker n/a Pre-Operative Diagnosis 1) Right Distal Tibia Fracture 2) R Proximal Fibula Fracture Post-Operative Diagnosis same Operative Report Date of Procedure: February 04, 2022 Name of Procedure Performed: 1) Open Reduction and Internal Fixation of Right Distal Tibia Fracture 2) Closed Treatment of Right Proximal Fibula Fracture Description & Findings After obtaining informed consent and marking the patient in the preoperative holding area, patient was administered IV antibiotics. Patient was taken to the operating room and general anesthesia was induced. Surgical timeout was taken. The right lower extremity was prepped and draped in the usual sterile fashion. Incison was made over the tibial crest and curving toward the medial side distally. Blunt dissection was carried down to fascia. Saphenous nerve and vein were protected distally. Fascia was sharply incised medial to the tibialis anterior. Fracture site was exposed, irrigated, curretted, and provisionally reduced with bone clamps. A distal medial tibial plate was selected and placed on the bone. A wire was placed through the plate distally. Position of the jerri te was confirmed with C-arm. Nonlocking screws were then placed distally and proximally. C-arm was used to verify reduction in the AP, oblique, and lateral planes. Multiple locking screws were then placed 3 proximally and 6 distally; all locking screws were drilled through the provided drill sleeve and then placed by hand. 2 unicortical screws were placed in the butterfly fragment for maintaining it's position. Once all screws were placed, the bone clamp and wires were removed. C-arm was used to obtain imaging and demonstrated adequate reduction of the fracture with appropriate position of the hardware; the intraarticular extension remained without stepoff. The fibula was examined and demonstrated appropriate reduction of a proximal fibular fracture; given overall alignment, it was elected to treat the fibula fracture in closed fashion. Wound was irrigated with normal saline. Demineralized bone matrix was packed in and around the fracture site. Wound was closed in layered fashion with 0 vicryl, 2-0 vicryl, 3-0 vicryl, and mart. Wound was injected subcutaneously with local anesthetic. Wound was dressed with xeroform, 4x4s, ABD, webril, posterior splint, and DARRELL wraps. Patient tolerated the procedure well and was stable to the recovery room. Anesthesia Type General Estimated Blood Loss 100 mL Specimen(s) collected/removed None FORD MARK MD February 04, 2022 11:56
--- NOTE | 2022-02-04 12:32 | Diagnostic Imaging Report ---
INDICATION: Right tibia fracture followup. IMPRESSION: 33.6 seconds of fluoroscopy and 4 intraoperative digital images were used in surgery by Dr. Diaz during internal fixation of an oblique fracture of the tibia shaft. Fracture appears to be transfixed in good alignment. Dictated by: Dictated on workstation # [id number]
--- NOTE | 2022-02-04 12:34 | Anesthesia-General Post-Op ---
General Patient Condition Mental Status/LOC: Same as Preop Cardiovascular: Satisfactory Nausea/Vomiting: Absent Respiratory: Satisfactory Pain: Controlled Complications: Absent Post Op Complications Complications None Follow Up Care/Instructions Patient Instructions None needed. Anesthesia/Patient Condition Patient Condition Patient is doing well, no complaints, stable vital signs, no apparent adverse anesthesia problems. No complications reported per nursing. FORD ELIAS CRNA February 04, 2022 12:34
[2022-02-04] MEDS ORDERED: MTP25TSR PO (13:01)
[2022-02-04] MEDS ORDERED: ATOR80TA76 PO (13:01)
[2022-02-04] MEDS ORDERED: FLUO20CA48 PO (13:01)
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
[2022-02-04] MEDS: ENOXAPARIN 40 MG/0.4 ML (LOVENOX) SYR SQ SCH (22:21)
[2022-02-05 00:30] VITALS: BP 166/83
[2022-02-05 04:09] VITALS: BP 167/69
[2022-02-05 05:59] LABS: HEMOGLOBIN 13.3 g/dL (13.3-17.7)
[2022-02-05 06:22] LABS: POTASSIUM 4.5 MMOL/L (3.6-5.0)
[2022-02-05 06:23] LABS: CALCIUM 8.6 MG/DL (8.5-10.1)
[2022-02-05 06:27] LABS: CREATININE SERUM 0.68 MG/DL (0.60-1.30)
[2022-02-05 06:30] LABS: MAGNESIUM 1.8 MG/DL (1.6-2.4)
[2022-02-05 07:18] VITALS: BP 157/84
[2022-02-05] MEDS: FLUoxetine HCL 20 MG (PROzac) CAP PO SCH (08:31)
[2022-02-05] MEDS: PANTOPRAZOLE 40 MG (PROTONIX) TAB PO SCH (08:31)
[2022-02-05] MEDS: THIAMINE INJECTION 100 MG, FOLIC ACID INJECTION 1 MG, MAGNESIUM SULFATE 2 GM, VITAMIN M... IV SCH ×5 (08:31)
[2022-02-05 11:09] VITALS: BP 152/80
--- NOTE | 2022-02-05 11:44 | Physical Therapy Daily Note ---
PT Daily Note-Current Subjective Patient agrees to PT. Pain Numeric Pain Scale: 7 Location: Right Location Body Site: Calf Pain Description: Acute Mental Status Patient Orientation: Normal For Age Attachments: IV Transfers SCALE: Activities may be completed with or without assistive devices. 4-Hqdsxcphio-sdvghfv completes the activity by him/herself with no assistance from a helper. 5-Set-up or Clean-up Assistance-helper sets up or cleans up; patient completes activity. [place] assists only prior to or following the activity. 4-Supervision or Touching Assistance-helper provides verbal cues and/or touching/steadying and/or contact guard assistance as patient completes activity. Assistance may be provided throughout the activity or intermittently. 3-Partial/Moderate Assistance-helper does LESS THAN HALF the effort. [place] lifts, holds or supports trunk or limbs, but provides less than half the effort. 2-Substantial/Maximal Assistance-helper does MORE THAN HALF the effort. [place] lifts or holds trunk or limbs and provides more than half the effort. 2-Lmeqjgksl-cyglmh does ALL the effort. Patient does none of the effort to complete the activity. Or, the assistance of 2 or more helpers is required for the patient to complete the activity. If activity was not attempted, code reason: 7-Patient Refused. 9-Not Applicable-not attempted and the patient did not perform the activity before the current illness, exacerbation or injury. 10-Not Attempted due to Environmental Limitations-(lack of equipment, weather restraints, etc.). 88-Not Attempted due to Medical Conditions or Safety Concerns. Lying to Sitting/Side of Bed(Q: 6 Sit to Stand (QC): 4 Chair/Iei-eg-Huobl Xfer(QC): 4 Weight Bearing Right Lower Extremity: Right Non Weight Bearing Left Lower Extremity: Left Full Weight Bearing Gait Training Distance: 30' Walk 10 feet (QC): 4 Gait Assistive Device: FWW CGA for safety Exercises Seated Therapy Exercises: Long arc quads, Hip flexion Seated Reps: 15 Assessment Patient tolerated treatment and is up in recliner with needs met. Increase activity as tolerated by patient. PT Nursing Home Goals Nursing Home Goals PT Case Mgr Goals Time Frame: February 09, 2022 Roll Left & Right (QC): 6 Sit to Lying (QC): 6 Lying-Sitting on Side/Bed(QC): 6 Sit to Stand (QC): 6 Chair/Dqa-su-Kikin Xfer(QC): 6 Toilet Transfer (QC): 6 Walk 10 feet (QC): 4 Walk 50ft with 2 Turns (QC): 4 1 Step (curb) (QC): 4 PT Plan Treatment/Plan Treatment Plan: Continue Plan of Care Treatment Plan: Bed Mobility, Education, Functional Activity Vanessa, Functional Strength, Gait, Safety, Therapeutic Exercise, Transfers Treatment Duration: February 09, 2022 Frequency: 1-2/day for 5 days Estimated Hrs Per Day: .5 hour per day Patient and/or Family Agrees t: Yes Time/GCodes Time In: 1120 Time Out: 1130 Total Billed Treatment Time: 10 Total Billed Treatment 1 visit FA 10 min YINKA ROSS PT February 05, 2022 11:44
--- NOTE | 2022-02-05 14:14 | Physical Therapy Daily Note ---
PT Daily Note-Current Subjective Patient agrees to PT. Pain Numeric Pain Scale: 5-Moderate Pain Location: Right Location Body Site: Calf Pain Description: Acute Mental Status Patient Orientation: Normal For Age Attachments: IV Transfers SCALE: Activities may be completed with or without assistive devices. 8-Kvheonspvj-qhetbmr completes the activity by him/herself with no assistance from a helper. 5-Set-up or Clean-up Assistance-helper sets up or cleans up; patient completes activity. [place] assists only prior to or following the activity. 4-Supervision or Touching Assistance-helper provides verbal cues and/or touching/steadying and/or contact guard assistance as patient completes activity. Assistance may be provided throughout the activity or intermittently. 3-Partial/Moderate Assistance-helper does LESS THAN HALF the effort. [place] lifts, holds or supports trunk or limbs, but provides less than half the effort. 2-Substantial/Maximal Assistance-helper does MORE THAN HALF the effort. [place] lifts or holds trunk or limbs and provides more than half the effort. 1-Anhiwlxnl-xpzrci does ALL the effort. Patient does none of the effort to complete the activity. Or, the assistance of 2 or more helpers is required for the patient to complete the activity. If activity was not attempted, code reason: 7-Patient Refused. 9-Not Applicable-not attempted and the patient did not perform the activity before the current illness, exacerbation or injury. 10-Not Attempted due to Environmental Limitations-(lack of equipment, weather restraints, etc.). 88-Not Attempted due to Medical Conditions or Safety Concerns. Sit to Lying (QC): 6 Lying to Sitting/Side of Bed(Q: 6 Sit to Stand (QC): 4 Weight Bearing Right Lower Extremity: Right Non Weight Bearing Left Lower Extremity: Left Full Weight Bearing Gait Training Distance: 15' x 1/150' x 1 Walk 10 feet (QC): 4 Walk 50 ft with 2 Turns(QC): 4 Walk 150 ft (QC): 4 Gait Assistive Device: FWW CGA for safety Assessment Patient returned to bed with needs met. Continue to increase ambulation distance and perform steps prior to dismissal. PT Fpc Goals Elevator Dispatcher Goals PT Elevator Dispatcher Goals Time Frame: February 09, 2022 Roll Left & Right (QC): 6 Sit to Lying (QC): 6 Lying-Sitting on Side/Bed(QC): 6 Sit to Stand (QC): 6 Chair/Cpz-du-Gviec Xfer(QC): 6 Toilet Transfer (QC): 6 Walk 10 feet (QC): 4 Walk 50ft with 2 Turns (QC): 4 1 Step (curb) (QC): 4 PT Plan Treatment/Plan Treatment Plan: Continue Plan of Care Treatment Plan: Bed Mobility, Education, Functional Activity Vanessa, Functional Strength, Gait, Safety, Therapeutic Exercise, Transfers Treatment Duration: February 09, 2022 Frequency: 1-2/day for 5 days Estimated Hrs Per Day: .5 hour per day Patient and/or Family Agrees t: Yes Time/GCodes Time In: 1315 Time Out: 1327 Total Billed Treatment Time: 12 Total Billed Treatment 1 visit GT 12 min YINKA ROSS PT February 05, 2022 14:14
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
[2022-02-05 16:00] VITALS: BP 124/64
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
[2022-02-05 20:00] VITALS: BP 122/69
[2022-02-05] MEDS: ENOXAPARIN 40 MG/0.4 ML (LOVENOX) SYR SQ SCH (20:26)
[2022-02-06] VITALS (7 sets, daily range): BP systolic 111–132; BP diastolic 58–75
[2022-02-06 06:13] LABS: BASOPHILS % (AUTO) 0 % (0-10); EOSINOPHILS # (AUTO) 0.1 10^3/uL (0.0-0.3); EOSINOPHILS % (AUTO) 1 % (0-10); HEMATOCRIT 39 % (40-54); HEMOGLOBIN 13.7 g/dL (13.3-17.7); LYMPHOCYTES # (AUTO) 1.1 10^3/uL (1.0-4.0); LYMPHOCYTES % (AUTO) 10 % (12-44); MEAN CORPUSCULAR HEMOGLOBIN 33 pg (25-34); MEAN CORPUSCULAR HGB CONC 35 g/dL (32-36); MEAN CORPUSCULAR VOLUME 94 fL (80-99); MEAN PLATELET VOLUME 11.3 fL (9.0-12.2); MONOCYTES % (AUTO) 8 % (0-12); NEUTROPHILS # (AUTO) 9.2 10^3/uL (1.8-7.8); NEUTROPHILS % (AUTO) 81 % (42-75); PLATELET COUNT 128 10^3/uL (130-400); WHITE BLOOD COUNT 11.4 10^3/uL (4.3-11.0)
[2022-02-06 06:33] LABS: ALBUMIN 3.8 GM/DL (3.2-4.5)
[2022-02-06 06:34] LABS: CALCIUM 9.1 MG/DL (8.5-10.1)
[2022-02-06 06:36] LABS: TOTAL PROTEIN 7.1 GM/DL (6.4-8.2)
[2022-02-06 06:37] LABS: BILIRUBIN,TOTAL 0.7 MG/DL (0.1-1.0)
[2022-02-06 06:39] LABS: CREATININE SERUM 0.7 MG/DL (0.60-1.30)
[2022-02-06] MEDS ORDERED: polyethylene glycoL POWDER 17 GM (MIRALAX) PACK PO SCH (09:00)
[2022-02-06] MEDS ORDERED: LACTULOSE SYRUP 10GM/15ML (ENULOSE) 30ML UDC PO NR (09:26)
[2022-02-06] MEDS: PANTOPRAZOLE 40 MG (PROTONIX) TAB PO SCH (09:36)
[2022-02-06] MEDS: FLUoxetine HCL 20 MG (PROzac) CAP PO SCH (09:36)
--- NOTE | 2022-02-06 09:42 | Physical Therapy Daily Note ---
PT Daily Note-Current Subjective Patient sitting EOB pre tx, agrees to PT, has 6/10 pain in right foot. Appearance Patient in bed post tx with nurse call, phone, tray, all needs met. Mental Status Patient Orientation: Person, Place, Situation Transfers SCALE: Activities may be completed with or without assistive devices. 0-Tbmcgcpruv-qgtlpdk completes the activity by him/herself with no assistance from a helper. 5-Set-up or Clean-up Assistance-helper sets up or cleans up; patient completes activity. [place] assists only prior to or following the activity. 4-Supervision or Touching Assistance-helper provides verbal cues and/or touchi ng/steadying and/or contact guard assistance as patient completes activity. Assistance may be provided throughout the activity or intermittently. 3-Partial/Moderate Assistance-helper does LESS THAN HALF the effort. [place] lifts, holds or supports trunk or limbs, but provides less than half the effort. 2-Substantial/Maximal Assistance-helper does MORE THAN HALF the effort. [place] lifts or holds trunk or limbs and provides more than half the effort. 2-Ucppgoswt-szxued does ALL the effort. Patient does none of the effort to complete the activity. Or, the assistance of 2 or more helpers is required for the patient to complete the activity. If activity was not attempted, code reason: 7-Patient Refused. 9-Not Applicable-not attempted and the patient did not perform the activity before the current illness, exacerbation or injury. 10-Not Attempted due to Environmental Limitations-(lack of equipment, weather restraints, etc.). 88-Not Attempted due to Medical Conditions or Safety Concerns. Roll Left & Right (QC): 6 Sit to Lying (QC): 6 Sit to Stand (QC): 4 Chair/Lrg-cx-Dymia Xfer(QC): 4 SBA for sit to stand and transfers Weight Bearing Right Lower Extremity: Right Non Weight Bearing Left Lower Extremity: Left Full Weight Bearing Gait Training Distance: 80' Walk 10 feet (QC): 4 Walk 50 ft with 2 Turns(QC): 4 Gait Persons Needed: 1 Gait Assistive Device: FWW SBA, patient was compliant with NWB on right leg, did a good job hopping on left leg while keeping right leg off the ground Exercises Supine Ex: Ankle pumps (actually performed toe flex/ext), Heel Slides Supine Reps: 20 Treatments bed mobility and transfers, ambulation, LE exercise Assessment Current Status: Fair Progress improving mobility, compliant with NWB on left leg PT Hooker Operator Goals Prison Goals PT Hooker Operator Goals Time Frame: February 09, 2022 Roll Left & Right (QC): 6 Sit to Lying (QC): 6 Lying-Sitting on Side/Bed(QC): 6 Sit to Stand (QC): 6 Chair/Hos-pm-Yxwyl Xfer(QC): 6 Toilet Transfer (QC): 6 Walk 10 feet (QC): 4 Walk 50ft with 2 Turns (QC): 4 1 Step (curb) (QC): 4 PT Plan Problem List Problem List: Activity Tolerance, Functional Strength, Safety, Balance, Gait, Transfer Treatment/Plan Treatment Plan: Continue Plan of Care Treatment Plan: Bed Mobility, Education, Functional Activity Vanessa, Functional Strength, Gait, Safety, Therapeutic Exercise, Transfers Treatment Duration: February 09, 2022 Frequency: 1-2/day for 5 days Estimated Hrs Per Day: .5 hour per day Patient and/or Family Agrees t: Yes Safety Risks/Education Patient Education: Gait Training, Transfer Techniques, Reviewed Precautions, Correct Positioning, Safety Issues Teaching Recipient: Patient Teaching Methods: Demonstration, Discussion Response to Teaching: Reinforcement Needed Time/GCodes Time In: 911 Time Out: 923 Total Billed Treatment Time: 12 Total Billed Treatment 1 visit FA EMILIE ROBERSON PT February 06, 2022 09:42
[2022-02-06] MEDS ORDERED: OXC5T PO (09:43)
[2022-02-06] MEDS ORDERED: SENN1TAB76 PO (09:43)
[2022-02-06] MEDS ORDERED: MULT-1136 PO (09:43)
[2022-02-06] MEDS ORDERED: ASPI-1238 PO (09:43)
--- NOTE | 2022-02-06 09:46 | D/C HH Face to Face Order ---
D/C HH Face to Face Orders Reconcile Patient Problems Problems Reviewed?: Yes Instructions for Patient HH Patient Instructions/FollowUp: PCP 1 week Physician to follow Patient: PCP Discharge Diet for Home: No Restrictions Patient Problems: Fall Ankle fracture Patient Data-Allergies,Ht & Wt Patient Allergies: Coded Allergies: No Known Drug Allergies (Unverified , 07/27/18) Height (Feet): 6 Height (Inches): 0.00 Weight (Pounds): 185 Weight (Ounces): 0.3 Home Health Need/Face to Face Date of Face to Face: February 06, 2022 Clinical Findings: Generalized weakness and fatigue, Instability, Muscle weakness, Non or partial weight bearing, Shortness of breath I have seen Pt wljj-lh-lpgp: Yes Discharged To: Home Diagnosis/Conditions: Debility Patient is Homebound due to: Ray[place] fall risk due to instabilty, Muscle weakness, Non-weight bearing Homebound Status Due to the above stated illness, injury or surgical procedure (medical con dition or diagnosis) and associated clinical findings, the patient is homebound because of his/her inability to leave home except with aid of a supportive device and/or person AND leaving the home requires a considerable and taxing effort or is medically contraindicated. Pt req the following assistanc: Walker Home Health Nursing Orders Home Health Services Order: Nursing Services, Horticultural Therapist-Evaluate & Treat, Physical Therapy-Evaluate & Treat Certify Stmt I certify that this patient is under my care and that I, a nurse practitioner or a physician; a head start assistant teacher working with me, had a face to face encounter that - meets the physician face to face encounter requirements with this patient as dated. JOSÉ ANTONIO LOPES DO February 06, 2022 09:46
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
--- NOTE | 2022-02-06 11:25 | Physical Therapy Daily Note ---
PT Daily Note-Current Subjective Pt. agrees to Rx, states his pain is 4/10. Pt. states he knows he needs to keep his right LE elevated but the bed is very uncomfortable. Pt. agrees to try the recliner with head /back reclined and feet elevated. pt. found this very comfortable Pain Numeric Pain Scale: 4 Location: Right Location Body Site: Ankle Pain Description: Pressure Mental Status Patient Orientation: Normal For Age Attachments: Other-See Comments (cast RLE) Transfers SCALE: Activities may be completed with or without assistive devices. 4-Anchcjxyve-vzdaeog completes the activity by him/herself with no assistance from a helper. 5-Set-up or Clean-up Assistance-helper sets up or cleans up; patient completes activity. [place] assists only prior to or following the activity. 4-Supervision or Touching Assistance-helper provides verbal cues and/or touching/steadying and/or contact guard assistance as patient completes activity. Assistance may be provided throughout the activity or intermittently. 3-Partial/Moderate Assistance-helper does LESS THAN HALF the effort. [place] lifts, holds or supports trunk or limbs, but provides less than half the effort. 2-Substantial/Maximal Assistance-helper does MORE THAN HALF the effort. [place] lifts or holds trunk or limbs and provides more than half the effort. 4-Vcvvfcdig-nbkdzb does ALL the effort. Patient does none of the effort to complete the activity. Or, the assistance of 2 or more helpers is required for the patient to complete the activity. If activity was not attempted, code reason: 7-Patient Refused. 9-Not Applicable-not attempted and the patient did not perform the activity before the current illness, exacerbation or injury. 10-Not Attempted due to Environmental Limitations-(lack of equipment, weather restraints, etc.). 88-Not Attempted due to Medical Conditions or Safety Concerns. indep rolling in bed, indep sup to sit, SBA sit to stand. Weight Bearing Right Lower Extremity: Right Non Weight Bearing Left Lower Extremity: Left Full Weight Bearing Gait Training Does the Patient Walk?: Yes Gait Assistive Device: FWW [id number] inside room bed to recliner CGA maintained NWBing Exercises Supine Ex: Ankle pumps (L), Quad Set, Glut sets, Heel Slides, Short Arc Quads (L), Straight leg raise, Hip abd/add Supine Reps: 15 Treatments supine LE therex as recorded above, gait to recliner, pt. was instructed in use of recliner to recline head and elevate LEs, pillows for support and comfort under RLE, pt. found this very comfortable , call herrera and phone and table at hand Assessment Current Status: Good Progress PT Skilled Nursing Goals Warranty Manager Goals PT Warranty Manager Goals Time Frame: February 09, 2022 Roll Left & Right (QC): 6 Sit to Lying (QC): 6 Lying-Sitting on Side/Bed(QC): 6 Sit to Stand (QC): 6 Chair/Dev-zr-Eqwzl Xfer(QC): 6 Toilet Transfer (QC): 6 Walk 10 feet (QC): 4 Walk 50ft with 2 Turns (QC): 4 1 Step (curb) (QC): 4 PT Plan Treatment/Plan Treatment Plan: Continue Plan of Care Treatment Plan: Bed Mobility, Education, Functional Activity Vanessa, Functional Strength, Gait, Safety, Therapeutic Exercise, Transfers Treatment Duration: February 09, 2022 Frequency: 1-2/day for 5 days Estimated Hrs Per Day: .5 hour per day Patient and/or Family Agrees t: Yes Safety Risks/Education Patient Education: Gait Training, Transfer Techniques, Correct Positioning, Safety Issues Teaching Recipient: Patient Teaching Methods: Discussion Response to Teaching: Return Demonstration, Reinforcement Needed Time/GCodes Time In: 1055 Time Out: 1115 Total Billed Treatment Time: 20 Total Billed Treatment 1,FA20m SOCORRO ZAPATA SECURITY PATROL OFFICER February 06, 2022 11:25
--- NOTE | 2022-02-06 11:28 | Occupational Ther Daily Note ---
OT Current Status-Daily Note Subjective Pt in bed, agreeable to OT Tx. Mental Status/Objective Patient Orientation: Normal For Age ADL-Treatment Therapy Code Descriptions/Definitions Functional [place] Measure: 0=Not Assessed/NA 4=Minimal Assistance 1=Total Assistance 5=Supervision or Setup 2=Maximal Assistance 6=Modified [place] 3=Moderate Assistance 7=Complete IndependenceSCALE: Activities may be completed with or without assistive devices. 8-Argdwccjxa-fnhlshh completes the activity by him/herself with no assistance from a helper. 5-Set-up or Clean-up Assistance-helper sets up or cleans up; patient completes activity. [place] assists only prior to or following the activity. 4-Supervision or Touching Assistance-helper provides verbal cues and/or touching/steadying and/or contact guard assistance as patient completes activity. Assistance may be provided throughout the activity or intermittently. 3-Partial/Moderate Assistance-helper does LESS THAN HALF the effort. [place] lifts, holds or supports trunk or limbs, but provides less than half the effort. 2-Substantial/Maximal Assistance-helper does MORE THAN HALF the effort. [place] lifts or holds trunk or limbs and provides more than half the effort. 3-Aeuehzboe-ugpxtj does ALL the effort. Patient does none of the effort to complete the activity. Or, the assistance of 2 or more helpers is required for the patient to complete the activity. If activity was not attempted, code reason: 7-Patient Refused. 9-Not Applicable-not attempted and the patient did not perform the activity before the current illness, exacerbation or injury. 10-Not Attempted due to Environmental Limitations-(lack of equipment, weather restraints, etc.). 88-Not Attempted due to Medical Conditions or Safety Concerns. Other Treatment Pt in bed, transferred supine to sit EOB independently, then stood at walker with SBA. Pt able to manage pants down/up, while keeping one hand on the walker at a time, SBA. Pt returns to EOB, then supine independently. Pt independent with scooting up towards HOB and positioning to comfort. Pt reports no concerns with completing ADLs upon discharging. OT educated pt again on recommendation for tub transfer bench, he verbalizes understanding. Post tx, pt in bed, call light in reach and all needs met. Education OT Patient Education: Correct positioning, Energy conservation, Modified ADL techniques, Progress toward Goal/Update tx plan, Purpose of tx/functional activities, Rehab process Teaching Recipient: Patient Teaching Methods: Discussion Response to Teaching: Verbalize Understanding OT Residential Goals Residential Goals Time Frame: Feb 22, 2022 Eating (QC): 6 Oral Hygiene (QC): 6 Toileting Hygiene (QC): 6 Shower/Bathe Self (QC): 4 Upper Body Dressing (QC): 5 Lower Body Dressing (QC): 4 Additional Goals: 1-Demonstrate ADL Tasks, 2-Verbalize Understanding, 3- ImproveStrength/[place] 1=Demonstrate adherence to instructed precautions during ADL tasks. 2=Patient will verbalize/demonstrate understanding of assistive devices/modifications for ADL. 3=Patient will improve strength/tolerance for activity to enable patient to perform ADL's. OT Education/Plan Problem List/Assessment Assessment: Decreased Activ Tolerance, Decreased UE Strength, Impaired Funct Balance, Impaired I ADL's, Impaired Self-Care Skills Discharge Recommendations Plan/Recommendations: Continue POC Treatment Plan/Plan of Care Patient would benefit from OT for education, treatment and training to promote independence in ADL's, mobility, safety and/or upper extremity function for ADL's. Plan of Care: ADL Retraining, Functional Mobility, UE Funct Exercise/Act Treatment Duration: Feb 22, 2022 Frequency: 3 times per week (3-5 times per week) Rehab Potential: Fair Time/GCodes Start Time: 10:43 Stop Time: 10:53 Total Time Billed (hr/min): 10 Billed Treatment Time 1, ADL KELVIN CRISTINA OT February 06, 2022 11:28
--- NOTE | 2022-02-06 11:48 | Progress Note - Ortho ---
Progress Note Subjective Date of Exam 02/06/22 Chief Complaint POD #2 ORIF of Right Distal Tibia Fracture HPI/Events since last exam some difficulty with pain, making progress with therapy Review of Systems - Allergies: Coded Allergies: No Known Drug Allergies (Unverified , 07/27/18) Home Meds Active Scripts Multivitamin (Multivitamin) 1 Each Tablet, 1 EACH PO DAILY, #30 TAB Prov:JOSÉ ANTONIO LOPES DO 02/06/22 Aspirin (Aspirin EC) 81 Mg Tablet., 81 MG PO DAILY, #90 TAB Prov:JOSÉ ANTONIO LOPES DO 02/06/22 Sennosides/Docusate Sodium (Stool Softener-Laxative Tablet) 8.6 Mg-50 Mg Tablet, 2 EA PO BID PRN for CONSTIPATION-5TH LINE, #30 TAB Prov:JOSÉ ANTONIO LOPES DO 02/06/22 Oxycodone Hcl (OXYIR TABLET) 5 Mg Tab, 5 MG PO TID PRN for PAIN-SEVERE (8-10) 1ST LINE, #25 TAB Prov:JOSÉ ANTONIO LOPES DO 02/06/22 Reported Medications Atorvastatin Calcium (Atorvastatin Calcium) 80 Mg Tablet, 80 MG PO HS, TAB 02/04/22 Metoprolol Succinate (Metoprolol Succinate) 25 Mg Tab.er.24h, 25 MG PO DAILY, TAB 02/04/22 Fluoxetine HCl (Fluoxetine HCl) 20 Mg Capsule, 20 MG PO DAILY, CAP 02/04/22 Discontinued Scripts Furosemide (Lasix) 20 Mg Tablet, 20 MG PO DAILY PRN for SHORTNESS OF BREATH, #30 TAB 1 Refill Prov:LUZMA DOMINGUEZ MD 07/30/18 Metoprolol Succinate (Toprol Xl) 25 Mg Tab.er.24h, 25 MG PO DAILY, #30 TAB 3 Refills Prov:LUZMA DOMINGUEZ MD 07/30/18 Pantoprazole Sodium (Pantoprazole Sodium) 40 Mg Tablet., 40 MG PO DAILY@0700, #30 TAB 3 Refills Prov:LUZMA DOMINGUEZ MD 07/30/18 Aspirin (Aspirin EC) 81 Mg Tablet., 81 MG PO DAILY, #100 TAB 3 Refills Prov:LUZMA DOMINGUEZ MD 07/30/18 Isosorbide Mononitrate (Isosorbide Mononitrate ER) 30 Mg Tab.er.24h, 30 MG PO DAILY, #30 TAB 3 Refills Prov:LUZMA DOMINGUEZ MD 07/30/18 [place] 3 Polyunsat Fatty Acids (Fish Oil 1,000 mg Capsule) 1,000 Mg Cap, 1000 MG PO BID WITH MEALS, #100 CAP 3 Refills Prov:LUZMA DOMINGUEZ MD 07/30/18 Atorvastatin Calcium (Atorvastatin Calcium) 80 Mg Tablet, 80 MG PO HS, #30 TAB 3 Refills Prov:LUZMA DOMINGUEZ MD 07/30/18 Clopidogrel Bisulfate (Clopidogrel) 75 Mg Tablet, 75 MG PO DAILY, #30 TAB 3 Refills Prov:LUZMA DOMINGUEZ MD 07/30/18 Objective Exam Right Leg: Splint C/D/I, Flexes and extends toes, sensation grossly intact to light touch, cap refill brisk Vital Signs Vital Signs Date Time Temp Pulse Resp B/P (MAP) Pulse Ox O2 Delivery O2 Flow Rate FiO2 02/06/22 07:58 36.7 87 18 120/64 (82) 95 Room Air 02/06/22 04:00 37.3 80 20 111/58 (75) 96 Room Air 02/06/22 03:09 37.3 85 96 21 02/06/22 00:02 37.3 85 20 132/68 (89) 96 Room Air 02/05/22 20:25 Room Air 02/05/22 20:00 37.2 88 20 122/69 (86) 95 Room Air 02/05/22 16:00 37.6 85 18 124/64 (84) 96 Room Air I & O 02/06/22 07:00 Intake Total 2520 ml Output Total 4150 ml Balance -1630 ml Lab Results Laboratory Tests 02/06/22 06:08: White Blood Count 11.4H, Red Blood Count 4.18L, Hemoglobin 13.7, Hematocrit 39L, Mean Corpuscular Volume 94, Mean Corpuscular Hemoglobin 33, Mean Corpuscular Hemoglobin Concent 35, Red Cell Distribution Width 13.3, Platelet Count 128L, Mean Platelet Volume 11.3, Immature Granulocyte % (Auto) 0, Neutrophils (%) (Auto) 81H, Lymphocytes (%) (Auto) 10L, Monocytes (%) (Auto) 8, Eosinophils (%) (Auto) 1, Basophils (%) (Auto) 0, Neutrophils # (Auto) 9.2H, Lymphocytes # (Auto) 1.1, Monocytes # (Auto) 1.0, Eosinophils # (Auto) 0.1, Basophils # (Auto) 0.0, Immature Granulocyte # (Auto) 0.0, Sodium Level 135, Potassium Level 4.0, Chloride Level 101, Carbon Dioxide Level 21, Anion Gap 13, Blood Urea Nitrogen 7, Creatinine 0.70, Estimat Glomerular Filtration Rate 104, BUN/Creatinine Ratio 10, Glucose Level 124H, Calcium Level 9.1, Corrected Calcium 9.3, Total Bilirubin 0.7, Aspartate Amino Transf (AST/SGOT) 21, Alanine Aminotransferase (ALT/SGPT) 18, Alkaline Phosphatase 78, Total Protein 7.1, Albumin 3.8 Microbiology 02/04/22 MRSA Screen - Final, Complete MRSA not isolated Assessment and Plan Assessment Right Distal Tibia Fracture s/p ORIF Right Proximal Fibula Fracture Problem List Right Distal Tibia Fracture s/p ORIF Right Proximal Fibula Fracture Plan Maintain Splint Strict NWB F/U with me on 02/19 in office Ok for D/C from ortho standpoint Final Diagonsis Right Distal Tibia Fracture s/p ORIF Right Proximal Fibula Fracture Level of the visit: Level 3 (postop global) FORD MARK MD February 06, 2022 11:48
== END 2022-02-06 16:40 | disposition home or self-care (01) ==
LOC: EDUNIT# 18:38 → ER 18:39 → 4TH 19:58
PROVIDERS: ADMIT Family Medicine; ATTEND Internal Medicine
DX: S82.301A Unspecified fracture of lower end of right tibia, initial encounter for closed fracture (principal); S82.491A Other fracture of shaft of right fibula, initial encounter for closed fracture; I10 Essential (primary) hypertension; E78.5 Hyperlipidemia, unspecified; I25.10 Atherosclerotic heart disease of native coronary artery without angina pectoris; F17.210 Nicotine dependence, cigarettes, uncomplicated; F10.10 Alcohol abuse, uncomplicated; V98.8XXA Other specified transport accidents, initial encounter; Z86.73 Personal history of transient ischemic attack (TIA), and cerebral infarction without residual deficits
CPT/HCPCS: 36415; 71045; 73590; 73610; 76000; 80048; 80053; 83735; 85014; 85018; 85025; 87081; 90715; 94664; 94760; 96361; 96365; 96372; 96375; 96376; G0378